=== PATIENT | female | born 1930 | race American Indian/Alaskan Native ===

== ENCOUNTER 2018-04-25 20:40 | Inpatient (IN) | payer MEDICAID ==
--- NOTE | 2018-04-25 20:56 | Emergency Department Report ---
ED Chest Pain HPI - General Chief Complaint: Chest Pain Stated Complaint: chest pain Time Seen by Provider: 04/25/18 20:40 Source: family, EMS Mode of arrival: Stretcher Limitations: No Limitations - History of Present Illness Initial Comments: Patient is an 87-year-old female that presents emergency room with complaints of chest pain 3 hours and nausea and vomiting. Patient brought in by EMS. Patient states the chest pain is in the center of her chest and nonradiating. Patient denies shortness of breath. Patient states the pain is better with rest and worse with exertion. Patient states the pain is a 10 out of 10. She has past medical history of vertigo, tachybradycardia syndrome, dementia and pacemaker placement. MD Complaint: chest pain -: Sudden Onset: during rest Pain Location: substernal, left chest Pain Radiation: none Severity: severe Severity scale (0 -10): 10 Quality: tightness, heaviness Consistency: constant Improves With: rest Worsens With: exertion re: nausea, vomting. denies: diaphoresis, dyspnea, sense of impending doom Other Symptoms: denies: cough, fever, syncope, rash, acid taste in mouth, leg swelling, palpitations, burping Treatments Prior to Arrival: nitroglycerin Aspirin use within the Past 7 Days: (0) No - Related Data On Oral Contraceptives: No Home Medications Medication Instructions Recorded Confirmed Last Taken Metoprolol SUCCINATE ER TAB 50 mg PO DAILY 12/14/14 04/25/18 04/25/18 Apixaban [Eliquis] 2.5 mg PO BID 04/25/18 04/25/18 Unknown Donepezil HCl 10 mg PO HS 04/25/18 04/25/18 Unknown Meclizine [Antivert] 25 mg PO BID PRN 04/25/18 04/25/18 Unknown Allergies Allergy/AdvReac Type Severity Reaction Status Date / Time No Known Allergies Allergy Verified 04/25/18 21:44 Heart Score - HEART Score History: Moderately suspicious EKG: Non-specific Age: > 65 Risk factors: No known risk factors Troponin: < normal limit HEART Score: 4 ED Review of Systems ROS: Stated complaint: CODE STEMI Other details as noted in HPI Constitutional: denies: chills, fever Eyes: denies: eye pain, eye discharge, vision change ENT: denies: ear pain, throat pain Respiratory: denies: cough, shortness of breath, wheezing Cardiovascular: chest pain. denies: palpitations Endocrine: no symptoms reported Gastrointestinal: nausea, vomiting. denies: abdominal pain, diarrhea Genitourinary: denies: urgency, dysuria, discharge Musculoskeletal: denies: back pain, joint swelling, arthralgia Skin: denies: rash, lesions Neurological: denies: headache, weakness, paresthesias Psychiatric: denies: anxiety, depression Hematological/Lymphatic: denies: easy bleeding, easy bruising ED Past Medical Hx - Past Medical History Previous Medical History?: Yes Hx Arthritis: Yes 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 Vertigo. Pacemaker - Surgical History Past Surgical History?: Yes Hx Pacemaker: Yes Additional Surgical History: Cataract surgery. pacemaker - Family History Family history: no significant - Social History Smoking Status: Never Smoker Substance Use Type: None - Medications Home Medications: Home Medications Medication Instructions Recorded Confirmed Last Taken Type Metoprolol SUCCINATE ER TAB 50 mg PO DAILY 12/14/14 04/25/18 04/25/18 History Apixaban [Eliquis] 2.5 mg PO BID 04/25/18 04/25/18 Unknown History Donepezil HCl 10 mg PO HS 04/25/18 04/25/18 Unknown History Meclizine [Antivert] 25 mg PO BID PRN 04/25/18 04/25/18 Unknown History ED Physical Exam - General Limitations: No Limitations, Other General appearance: alert, in no apparent distress - Head Head exam: Present: atraumatic, normocephalic - Eye Eye exam: Present: normal appearance, PERRL Pupils: Present: normal accommodation - ENT ENT exam: Present: mucous membranes moist - Neck Neck exam: Present: normal inspection - Respiratory Respiratory exam: Present: normal lung sounds bilaterally. Absent: respiratory distress - Cardiovascular Cardiovascular Exam: Present: regular rate, normal rhythm. Absent: systolic murmur, diastolic murmur, rubs, gallop - GI/Abdominal GI/Abdominal exam: Present: soft, normal bowel sounds - Extremities Exam Extremities exam: Present: normal inspection - Back Exam Back exam: Present: normal inspection - Neurological Exam Neurological exam: Present: alert, oriented X3 - Psychiatric Psychiatric exam: Present: normal affect, normal mood - Skin Skin exam: Present: warm, dry, intact, normal color. Absent: rash ED Course Vital Signs 04/25/18 04/25/18 04/25/18 20:48 20:53 21:00 Temperature Pulse Rate 81 73 62 Respiratory 20 15 Rate Blood Pressure 181/84 O2 Sat by Pulse 98 100 Oximetry 04/25/18 04/25/18 04/25/18 21:15 21:18 21:20 Temperature 97.9 F Pulse Rate 60 Respiratory 15 18 Rate Blood Pressure 181/86 O2 Sat by Pulse 100 100 Oximetry 04/25/18 04/25/18 04/25/18 21:30 21:45 21:51 Temperature Pulse Rate 60 60 60 Respiratory 18 24 Rate Blood Pressure 193/85 193/84 193/84 O2 Sat by Pulse 100 100 Oximetry 04/25/18 04/25/18 04/25/18 22:01 22:15 22:30 Temperature Pulse Rate 60 60 60 Respiratory 16 15 14 Rate Blood Pressure 173/77 165/77 170/83 O2 Sat by Pulse 100 100 100 Oximetry 04/25/18 04/25/18 04/25/18 22:45 23:00 23:15 Temperature Pulse Rate 60 60 69 Respiratory 16 17 16 Rate Blood Pressure 185/80 185/80 153/71 O2 Sat by Pulse 100 100 100 Oximetry 04/25/18 04/26/18 04/26/18 23:30 00:00 00:07 Temperature Pulse Rate 67 62 60 Respiratory 19 21 Rate Blood Pressure 140/63 140/63 98/42 O2 Sat by Pulse 100 Oximetry 04/26/18 04/26/18 04/26/18 00:15 00:30 00:45 Temperature Pulse Rate 60 65 66 Respiratory 21 22 22 Rate Blood Pressure 76/31 92/41 109/59 O2 Sat by Pulse 97 97 Oximetry 04/26/18 01:00 Temperature Pulse Rate 69 Respiratory 19 Rate Blood Pressure 116/58 O2 Sat by Pulse 97 Oximetry - Reevaluation(s) Reevaluation #1: Code STEMI called due to ST segment changes on EMS EKGs. EKG done here and transmitted to Dr. Keith via text. No ST segment elevation noted but patient is a paced rhythm. 04/25/18 20:40 Patient will have a head CT prior to admission due to the fact the patient has had so much nausea vomiting 04/26/18 00:03 Nausea and vomiting has resolved Patient had head CT and is negative. Patient was admitted to the hospitalist service for further evaluation and treatment. Patient family group plan of care. 04/26/18 02:21 - Consultations Consultation #1: Discussed case with Dr. Rosado, job molder. Dr. Rosado states that this is not a STEMI and to cancel code STEMI. 04/25/18 20:45 Consultation #2: Hospitalist consult for admission. Hospitalist to admit patient and assume care of patient. 04/25/18 22:41 CT done. Hospitalist made aware of results. Hospitalist consulted for admission. 04/26/18 02:20 DEONNA score - Deonna Score Age > 65: (1) Yes Aspirin use within the Past 7 Days: (0) No 3 or more CAD Risk Factors: (0) No 2 or more Angina events in past 24 hrs: (1) Yes Known CAD with more than 50% Stenosis: (0) No Elevated Cardiac Markers: (0) No ST Deviation Greater than 0.5mm: (0) No DEONNA Score: 2 ED Medical Decision Making - Lab Data Result diagrams: 04/25/18 20:45 04/25/18 20:45 - EKG Data EKG shows normal: ST-T waves Rate: normal - EKG Data Interpretation: LVH, other ( AV paced. Wide QRS) - Radiology Data Radiology results: report reviewed, image reviewed PROCEDURE: XR CHEST 1V AP TECHNIQUE: Single frontal view of the chest HISTORY: Chest Pain COMPARISONS: No priors FINDINGS: There is a dual-chamber pacemaker in place. Cardiac silhouette at the upper limits of normal. Linear atelectasis in the left lung base. No airspace consolidation or pleural effusions. Pulmonary vasculature are within normal limits. IMPRESSION: Dual chamber pacemaker in place. No radiographic evidence of acute disease. Linear atelectasis in the left lung base.. PROCEDURE: CT HEAD/BRAIN WO CON TECHNIQUE: Routine axial imaging was obtained of the brain without IV contrast. HISTORY: nause. vomiting. COMPARISONS: None FINDINGS: There is mild volume loss. There is diminished attenuation of the periventricular white matter compatible with chronic ischemic white matter disease changes. There is no evidence of acute stroke or hemorrhage. The sinuses reveal subtotal opacification of both maxillary sinuses secondary to mucosal thickening and secretions. There is patchy mucosal thickening in the right ethmoidal air cells. The mastoid air cells are well pneumatized. The calvarium otherwise does not show any acute changes. IMPRESSION: Age related volume loss with chronic ischemic white matter disease changes. No evidence of acute stroke or hemorrhage. Extensive bilateral maxillary sinusitis with patchy mucosal thickening in the right ethmoidal air cells.. - Medical Decision Making pt is an 87-year-old female that presents pressure with complaints of chest pain and nausea vomiting. Patient's nausea is improved with Zofran. Patient initial cardiac workup is negative. Patient was admitted to the hospitalist service for further evaluation treatment. Dr. Rosado consulted early and care. Patient's initial cardiac workup negative. Patient's nausea is resolved with Zofran. Pressure elevated. Patient given hydralazine. - Differential Diagnosis acs. nstemi, cp. pe. Critical Care Time: Yes Critical care attestation.: If time is entered above; I have spent that time in minutes in the direct care of this critically ill patient, excluding procedure time. Critical Care Time: 35 minutes ED Disposition Clinical Impression: Nausea and vomiting Qualifiers: Vomiting type: unspecified Vomiting Intractability: non-intractable Qualified Code(s): R11.2 - Nausea with vomiting, unspecified Chest pain Qualifiers: Chest pain type: unspecified Qualified Code(s): R07.9 - Chest pain, unspecified Hypertension Qualifiers: Hypertension type: essential hypertension Qualified Code(s): I10 - Essential (primary) hypertension Disposition: OP ADMIT IP TO THIS HOSP Is pt being admited?: Yes Does the pt Need Aspirin: No Condition: Critical Time of Disposition: 02:21
[2018-04-25] MEDS ORDERED: ASPIRIN PR ONE (21:05)
[2018-04-25] MEDS ORDERED: NITRO-BID 2% TP ONE (21:05)
[2018-04-25 21:31] LABS: Hematocrit 37.3 % (30.3-42.9); Hemoglobin 12.8 gm/dl (10.1-14.3); Mean Corpuscular HGB Conc 34 % (30-34); Mean Corpuscular Volume 86 fl (79-97); Platelet Count 239 K/mm3 (140-440); Red Blood Count 4.32 M/mm3 (3.65-5.03)
[2018-04-25] MEDS ORDERED: ZOFRAN IV ONE (21:40)
[2018-04-25 21:41] LABS: Alanine Aminotransferase 10 units/L (7-56); Albumin 3.9 g/dL (3.9-5); BUN/Creatinine Ratio 18; Blood Urea Nitrogen 14 mg/dL (7-17); Calcium 10.7 mg/dL (8.4-10.2); Hemolysis Index 4
[2018-04-25] MEDS ORDERED: ZOFRAN ONE (21:43)
[2018-04-25 22:12] LABS: Total Cells Counted 100
[2018-04-25 22:13] LABS: Band Neutrophils # (Manual) 0.1 K/mm3
[2018-04-25 22:14] LABS: Ovalocytes Few
--- NOTE | 2018-04-25 22:19 | XRay Report ---
PROCEDURE: XR CHEST 1V AP TECHNIQUE: Single frontal view of the chest HISTORY: Chest Pain COMPARISONS: No priors FINDINGS: There is a dual-chamber pacemaker in place. Cardiac silhouette at the upper limits of normal. Linear atelectasis in the left lung base. No airspace consolidation or pleural effusions. Pulmonary vasculature are within normal limits. IMPRESSION: Dual chamber pacemaker in place. No radiographic evidence of acute disease. Linear atelectasis in the left lung base.. This document is electronically signed by Kit Hutton MD., April 25 2018 10:17:12 PM ET
[2018-04-25] MEDS ORDERED: APRESOLINE ONE (22:52)
[2018-04-25] MEDS ORDERED: APRESOLINE IV ONE (22:55)
[2018-04-26] MEDS ORDERED: REGLAN ONE (00:04)
[2018-04-26] MEDS ORDERED: REGLAN IV ONE (00:07)
--- NOTE | 2018-04-26 01:43 | Cat Scan Report ---
PROCEDURE: CT HEAD/BRAIN WO CON TECHNIQUE: Routine axial imaging was obtained of the brain without IV contrast. HISTORY: nause. vomiting. COMPARISONS: None FINDINGS: There is mild volume loss. There is diminished attenuation of the periventricular white matter compat ible with chronic ischemic white matter disease changes. There is no evidence of acute stroke or hemo rrhage. The sinuses reveal subtotal opacification of both maxillary sinuses secondary to mucosal thic kening and secretions. There is patchy mucosal thickening in the right ethmoidal air cells. The masto id air cells are well pneumatized. The calvarium otherwise does not show any acute changes. IMPRESSION: Age related volume loss with chronic ischemic white matter disease changes. No evidence of acute stro ke or hemorrhage. Extensive bilateral maxillary sinusitis with patchy mucosal thickening in the right ethmoidal air donavon ls.. This document is electronically signed by José Gillette MD., April 26 2018 01:40:37 AM ET
[2018-04-26] MEDS ORDERED: SODIUM CHLORIDE FLUSH SYRINGE 10 ML IV PRN (02:12)
[2018-04-26] MEDS ORDERED: ZOFRAN IV PRN (02:12)
[2018-04-26] MEDS ORDERED: TYLENOL PO PRN (02:12)
[2018-04-26 03:04] LABS: Basophils % (Auto) 0.4 % (0.0-1.8); Hematocrit 38.7 % (30.3-42.9); Hemoglobin 12.8 gm/dl (10.1-14.3); Lymphocytes # (Auto) 1.9 K/mm3 (1.2-5.4); Lymphocytes % (Auto) 21.9 % (13.4-35.0); Mean Corpuscular HGB Conc 33 % (30-34); Mean Corpuscular Volume 88 fl (79-97); Monocytes # (Auto) 0.2 K/mm3 (0.0-0.8); Platelet Count 229 K/mm3 (140-440); Red Blood Count 4.42 M/mm3 (3.65-5.03); Red Cell Distribution Width 14.2 % (13.2-15.2)
[2018-04-26 03:25] LABS: BUN/Creatinine Ratio 18; Blood Urea Nitrogen 14 mg/dL (7-17); Calcium 10.8 mg/dL (8.4-10.2); Hemolysis Index 11
--- NOTE | 2018-04-26 06:37 | History and Physical Report ---
History of Present Illness Date of examination: 04/26/18 Date of admission: 04/26/18 02:11 History of present illness: 87-year-old woman with a history of A. fib, dementia comes emergency room for evaluation of syncope. Daughter said that she had an episode of syncope, this was not witnessed, she also complained of chest pain in the epigastric area, further details about her symptoms are unobtainable secondary to dementia PAST MEDICAL HISTORY:of A. fib, dementia PAST SURGICAL HISTORY: Cataract extraction, pacemaker SOCIAL HISTORY: Denies alcohol, drugs, tobacco FAMILY HISTORY: Hypertension Medications and Allergies Allergies Allergy/AdvReac Type Severity Reaction Status Date / Time No Known Allergies Allergy Verified 04/25/18 21:44 Home Medications Medication Instructions Recorded Confirmed Last Taken Type Metoprolol SUCCINATE ER TAB 50 mg PO DAILY 12/14/14 04/25/18 04/25/18 History Apixaban [Eliquis] 2.5 mg PO BID 04/25/18 04/25/18 Unknown History Donepezil HCl 10 mg PO HS 04/25/18 04/25/18 Unknown History Meclizine [Antivert] 25 mg PO BID PRN 04/25/18 04/25/18 Unknown History Active Meds: Active Medications Acetaminophen (Tylenol) 650 mg PO Q4H PRN PRN Reason: Pain MILD(1-3)/Fever >100.5/KELLY Apixaban (Eliquis) 2.5 mg PO BID [facility]; Protocol Donepezil HCl (Aricept) 10 mg PO HS [facility] Meclizine HCl (Antivert) 25 mg PO BID PRN PRN Reason: Vertigo Miscellaneous Medication (Metoprolol Succinate Er Tab) 50 mg PO DAILY [facility] Ondansetron HCl (Zofran) 4 mg IV Q8H PRN PRN Reason: Nausea And Vomiting Sodium Chloride (Sodium Chloride Flush Syringe 10 Ml) 10 ml IV BID [facility] Sodium Chloride (Sodium Chloride Flush Syringe 10 Ml) 10 ml IV PRN PRN PRN Reason: LINE FLUSH Exam - Physical Exam Narrative exam: General Apperance: The patient lying in bed, breathing comfortable HEENT: Normocephalic, atraumatic. Pupils equally round and reactive to light, EOMI, no sclericterus or JVD or thyromegaly or nodule. , no carotid bruit, mucous membranes moist, no exudate or erythema Heart: S1-S2, regular is rhythm Lungs: Clear to auscultation bilaterally, breathing comfortable Abdomen: Positive bowel sounds, soft, nontender, nondistended, no organomegaly Extremities: No edema cyanosis clubbing Skin: no rash, nodule, warm and dry Neuro: cranial nerves 2-12 intact, speech is fluent, motor/sensory intact - Constitutional Vitals: Temp Pulse Resp BP Pulse Ox 98.6 F 65 17 130/61 100 04/26/18 04:53 04/26/18 04:53 04/26/18 04:53 04/26/18 04:53 04/26/18 04:53 Results - Labs CBC & Chem 7: 04/26/18 02:27 04/26/18 02:27 Labs: Abnormal lab results 04/25/18 04/25/18 04/26/18 Range/Units 20:45 20:45 02:27 Seg Neutrophils % (40.0-70.0) % Seg Neuts % (Manual) 13.0 L (40.0-70.0) % Lymphocytes % (Manual) 67.0 H (13.4-35.0) % Monocytes % (Manual) 8.0 H (0.0-7.3) % Basophils % (Manual) 3.0 H (0.0-1.8) % Seg Neutrophils # Man 1.3 L (1.8-7.7) K/mm3 Lymphocytes # (Manual) 6.8 H (1.2-5.4) K/mm3 Basophils # (Manual) 0.3 H (0.0-0.1) K/mm3 Glucose 123 H (65-100) mg/dL Calcium 10.7 H (8.4-10.2) mg/dL CK-MB (CK-2) Rel Index 4.1 H (0-4) 04/26/18 04/26/18 Range/Units 02:27 02:27 Seg Neutrophils % 75.7 H (40.0-70.0) % Seg Neuts % (Manual) (40.0-70.0) % Lymphocytes % (Manual) (13.4-35.0) % Monocytes % (Manual) (0.0-7.3) % Basophils % (Manual) (0.0-1.8) % Seg Neutrophils # Man (1.8-7.7) K/mm3 Lymphocytes # (Manual) (1.2-5.4) K/mm3 Basophils # (Manual) (0.0-0.1) K/mm3 Glucose 168 H (65-100) mg/dL Calcium 10.8 H (8.4-10.2) mg/dL CK-MB (CK-2) Rel Index (0-4) - Imaging and Cardiology EKG: image reviewed Chest x-ray: report reviewed CT Scan - head: report reviewed Assessment and Plan Assessment Syncope Chest pain Dementia A. fib Plan Check cardiac enzymes, echo, carotid Doppler Consult cardiology, continue appropriate outpatient medications DVT prophylaxis/eliquis
--- NOTE | 2018-04-26 09:59 | Consultation ---
Addendum entered and electronically signed by JYOTI LOPEZ MD 04/26/18 10:07: Patient is a very poor historian Patient is not aware of why she is in the hospital Patient denies chest pain or shortness of breath DEBBIE are negative ECG showing afib with V-pacing Tele showing atrial pacing CXR showing NAP Exam is unrevealing with no signs of CHF Conservative cardiac management Original Note: History of Present Illness Consult date: 04/26/18 Consult reason: chest pain History of present illness: Patient is an 87 year old woman who was sent to the emergency department with chest pain. Patient is a poor historian, history if unobtainable. Currently, she denies chest pain. She has no shortness of breath or palpitations. Chest x-ray shows a dual chamber pacemaker implant, no acute cardiopulmonary process. Cardiac enzymes were essential normal and her ECG is a ventricular paced rhythm. 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 Patient also has paroxysmal atrial fibrillation. She is on low dose eliquis for oral anticoagulation. In 2013, an echocardiogram documents a well preserved systolic function, ejection fraction 55-60%. Medications and Allergies Allergies Allergy/AdvReac Type Severity Reaction Status Date / Time No Known Allergies Allergy Verified 04/25/18 21:44 Home Medications Medication Instructions Recorded Confirmed Last Taken Type Metoprolol SUCCINATE ER TAB 50 mg PO DAILY 12/14/14 04/25/18 04/25/18 History Apixaban [Eliquis] 2.5 mg PO BID 04/25/18 04/25/18 Unknown History Donepezil HCl 10 mg PO HS 04/25/18 04/25/18 Unknown History Meclizine [Antivert] 25 mg PO BID PRN 04/25/18 04/25/18 Unknown History Active Meds: Active Medications Acetaminophen (Tylenol) 650 mg PO Q4H PRN PRN Reason: Pain MILD(1-3)/Fever >100.5/KELLY Apixaban (Eliquis) 2.5 mg PO BID [facility]; Protocol Donepezil HCl (Aricept) 10 mg PO HS [facility] Meclizine HCl (Antivert) 25 mg PO BID PRN PRN Reason: Vertigo Metoprolol Succinate (Toprol Xl) 50 mg PO QDAY [facility] Ondansetron HCl (Zofran) 4 mg IV Q8H PRN PRN Reason: Nausea And Vomiting Sodium Chloride (Sodium Chloride Flush Syringe 10 Ml) 10 ml IV BID [facility] Sodium Chloride (Sodium Chloride Flush Syringe 10 Ml) 10 ml IV PRN PRN PRN Reason: LINE FLUSH Physical Examination Vital Signs Pulse Resp Pulse Ox 81 20 98 04/25/18 20:48 04/25/18 20:48 04/25/18 20:48 General appearance: no acute distress HEENT: Positive: PERRL Neck: Positive: trachea midline Cardiac: Positive: Other (paced) Lungs: Positive: Decreased Breath Sounds Neuro: Positive: Grossly Intact Extremities: Absent: edema Results 04/26/18 02:27 04/26/18 02:27 Cardiac Enzymes 04/25/18 04/26/18 Range/Units 20:45 02:27 AST 16 (5-40) units/L CK-MB (CK-2) 2.0 (0.0-4.0) ng/mL CBC 04/25/18 04/26/18 Range/Units 20:45 02:27 WBC 10.2 8.9 (4.5-11.0) K/mm3 RBC 4.32 4.42 (3.65-5.03) M/mm3 Hgb 12.8 12.8 (10.1-14.3) gm/dl Hct 37.3 38.7 (30.3-42.9) % Plt Count 239 229 (140-440) K/mm3 Lymph # Cardiovascular Lab Director 1.9 [place] # 0.2 (0.0-0.8) K/mm3 Eos # 0.0 (0.0-0.4) K/mm3 Baso # 0.0 (0.0-0.1) K/mm3 Comprehensive Metabolic Panel 04/25/18 04/26/18 Range/Units 20:45 02:27 Sodium 140 141 (137-145) mmol/L Potassium 3.6 4.3 (3.6-5.0) mmol/L Chloride 104.9 102.4 (98-107) mmol/L Carbon Dioxide 25 26 (22-30) mmol/L BUN 14 14 (7-17) mg/dL Creatinine 0.8 0.8 (0.7-1.2) mg/dL Glucose 123 H 168 H (65-100) mg/dL Calcium 10.7 H 10.8 H (8.4-10.2) mg/dL AST 16 (5-40) units/L ALT 10 (7-56) units/L Alkaline Phosphatase 113 (35-129) units/L Total Protein 7.4 (6.3-8.2) g/dL Albumin 3.9 (3.9-5) g/dL Assessment and Plan Chest pain, atypical Hx of paroxysmal Afib on low dose eliquis for anticoagulation Hx of high degree AV block presence of DC PPM 2013 echocardiogram documents a well preserved left ventricular systolic function, EF 55-60%. Conservative cardiac management.
[2018-04-26] MEDS ORDERED: LOVENOX SUB-Q SCH ×2 (10:00)
[2018-04-26] MEDS ORDERED: NON-FORMULARY (Metoprolol Succinate Er Tab 50 MG) PO SCH (10:00)
[2018-04-26] MEDS ORDERED: ANTIVERT PO PRN (10:00)
[2018-04-26] MEDS: ELIQUIS PO SCH ×2 (11:41→22:35)
[2018-04-26] MEDS: TOPROL XL PO SCH (11:42)
[2018-04-26] MEDS: SODIUM CHLORIDE FLUSH SYRINGE 10 ML IV SCH ×2 (11:42→22:35)
--- NOTE | 2018-04-26 11:54 | Vascular Lab Report ---
PROCEDURE: VL CAROTID DUPLEX BILAT TECHNIQUE: Longitudinal and transverse grayscale, color, and Doppler sonographic images were perform ed HISTORY: syncope COMPARISONS: None FINDINGS: RIGHT Vessel PSV EDV Proximal CCA 75 8 Distal CCA 79 12 Proximal ICA 71 14 Mid ICA 60 15 Distal ICA 63 16 ECA 86 6 Vertebral 62 7 LEFT Vessel PSV EDV Proximal CCA 99 12 Distal CCA 72 8 Proximal ICA 70 20 Mid ICA 68 16 Distal ICA 39 10 ECA 75 5 Vertebral 75 9 Grayscale images demonstrates calcific plaquing bilaterally with tortuosity of the vessels. Antegrade flow in the bilateral vertebral arteries. IMPRESSION: By both velocities and ratios, no hemodynamically significant stenosis (1-49%) of either internal car otid artery. Antegrade flow in the bilateral vertebral arteries. This document is electronically signed by Melissa Singh MD., April 26 2018 11:52:30 AM ET
[2018-04-26] MEDS ORDERED: ZOFRAN ONE (11:59)
[2018-04-26] MEDS ORDERED: ASPIRIN PR ONE (11:59)
--- NOTE | 2018-04-26 14:43 | Event Note ---
Date: 04/26/18 Patient admitted earlier this morning for syncope and sub sternal chest pain. continue management per H/p. Cardiology evaluation noted.
[2018-04-26] MEDS: ARICEPT PO SCH (22:35)
[2018-04-27] MEDS: TOPROL XL PO SCH (10:12)
[2018-04-27] MEDS: ELIQUIS PO SCH ×2 (10:13→21:51)
[2018-04-27] MEDS: SODIUM CHLORIDE FLUSH SYRINGE 10 ML IV SCH ×2 (10:14→21:52)
--- NOTE | 2018-04-27 12:53 | Progress Note ---
Assessment and Plan Chest pain, atypical: Now resolved. Hx of paroxysmal Afib on low dose eliquis at home for anticoagulation Hx of high degree AV block presence of DC PPM 2013 echocardiogram documents a well preserved left ventricular systolic function, EF 55-60%. Recommend: Conservative cardiac management. At time of discharge she will need f/u with outpatient gun barrel finisher (previously seeing Dr. Aceves) Subjective Date of service: 04/27/18 Interval history: No cardiac complaints Objective Vital Signs Temp Pulse Resp BP Pulse Ox 04/27/18 10:12 61 135/70 04/27/18 10:00 100 04/27/18 08:02 98.1 F 80 18 135/70 100 04/27/18 04:45 97.9 F 63 16 122/56 100 04/26/18 23:09 97.9 F 68 16 117/47 98 04/26/18 21:12 99 04/26/18 19:50 68 04/26/18 19:33 97.9 F 68 18 109/42 100 04/26/18 18:00 97.8 F 65 18 122/54 99 - Physical Examination HEENT: Positive: PERRL Neck: Positive: trachea midline Cardiac: Positive: Reg Rate and Rhythm Lungs: Positive: clear to auscultation Extremities: Absent: edema - Labs and Meds Cardiac Enzymes 04/26/18 Range/Units 12:33 CK-MB (CK-2) 2.0 (0.0-4.0) ng/mL - Imaging and Cardiology EKG: image reviewed
--- NOTE | 2018-04-27 16:14 | Discharge Summary ---
Providers - Providers Date of Admission: 04/26/18 02:11 Date of discharge: 04/27/18 Attending physician: JORGE ROBLERO 04/26/18 02:12 Consult to Physician [CONS] Routine Comment: Consulting Provider: SHANTELLE POE Physician Instructions: Reason For Exam: cp Primary care physician: [facility] Hospitalization Condition: Fair Hospital course: Patient 87 years old presents with chest pain has since resolved. Was felt to be in atrial fibrillation rate control. Echocardiogram revealed ejection fraction of 55-60%. Patient chest pain-free, with dementia. Cardiac isoenzymes negative EKG unremarkable. Disposition: DC-30 STILL A PATIENT - Discharge Diagnoses (1) Chest pain Status: Acute Qualifiers: Chest pain type: unspecified Qualified Code(s): R07.9 - Chest pain, unspecified (2) Hypertension Status: Acute Qualifiers: Hypertension type: essential hypertension Qualified Code(s): I10 - Essential (primary) hypertension Core Measure Documentation - Palliative Care Palliative Care/ Comfort Measures: Not Applicable - Core Measures Any of the following diagnoses?: none Exam - Constitutional Vitals: Temp Pulse Resp BP Pulse Ox 98.3 F 60 16 105/46 98 04/27/18 14:14 04/27/18 14:14 04/27/18 14:14 04/27/18 14:14 04/27/18 14:14 General appearance: Present: no acute distress, well-nourished - EENT Eyes: Present: PERRL ENT: hearing intact, clear oral mucosa - Neck Neck: Present: supple, normal ROM - Respiratory Respiratory effort: normal Respiratory: bilateral: CTA - Cardiovascular Rhythm: irregularly irregular Heart Sounds: Present: S1 & S2. Absent: rub, click - Extremities Extremities: pulses symmetrical, No edema Peripheral Pulses: within normal limits - Abdominal General gastrointestinal: Present: soft, non-tender, non-distended, normal bowel sounds Female genitourinary: Present: normal - Integumentary Integumentary: Present: clear, warm, dry - Musculoskeletal Musculoskeletal: strength equal bilaterally, generalized weakness - Psychiatric Psychiatric: appropriate mood/affect, intact judgment & insight - Neurologic Neurologic: CNII-XII intact, moves all extremities Plan Activity: advance as tolerated, fall precautions Weight Bearing Status: Non-Weight Bearing Diet: low salt Prescriptions: Apixaban [Eliquis] 2.5 mg PO BID #60 tablet Donepezil HCl 10 mg PO HS #30 tablet Meclizine [Antivert] 25 mg PO BID PRN #60 tablet PRN Reason: Vertigo Metoprolol Xl [Metoprolol SUCCINATE ER TAB] 50 mg PO QDAY #30 tablet
[2018-04-27] MEDS: ARICEPT PO SCH (21:51)
[2018-04-28 08:37] VITALS: BP 141/61
[2018-04-28] MEDS: SODIUM CHLORIDE FLUSH SYRINGE 10 ML IV SCH (09:52)
[2018-04-28] MEDS: ELIQUIS PO SCH (09:52)
[2018-04-28] MEDS: TOPROL XL PO SCH (09:52)
--- NOTE | 2018-04-28 11:33 | Discharge Summary ---
Providers - Providers Date of Admission: 04/26/18 02:11 Date of discharge: 04/28/18 Attending physician: JORGE ROBLERO 04/26/18 02:12 Consult to Physician [CONS] Routine Comment: Consulting Provider: SHANTELLE POE Physician Instructions: Reason For Exam: cp Primary care physician: [facility] Hospitalization Condition: Fair Disposition: DC- TO HOME OR SELFCARE - Discharge Diagnoses (1) Chest pain Status: Acute Qualifiers: Chest pain type: unspecified Qualified Code(s): R07.9 - Chest pain, unspecified (2) Hypertension Status: Acute Qualifiers: Hypertension type: essential hypertension Qualified Code(s): I10 - Essential (primary) hypertension Core Measure Documentation - Palliative Care Palliative Care/ Comfort Measures: Not Applicable - Core Measures Any of the following diagnoses?: none Exam - Constitutional Vitals: Temp Pulse Resp BP Pulse Ox 97.5 F L 61 16 141/61 97 04/28/18 08:28 04/28/18 09:52 04/28/18 08:28 04/28/18 09:52 04/28/18 08:28 General appearance: Present: no acute distress, well-nourished - EENT Eyes: Present: PERRL ENT: hearing intact, clear oral mucosa - Neck Neck: Present: supple, normal ROM - Respiratory Respiratory effort: normal Respiratory: bilateral: CTA - Cardiovascular Heart Sounds: Present: S1 & S2. Absent: rub, click - Extremities Extremities: pulses symmetrical, No edema Peripheral Pulses: within normal limits - Abdominal General gastrointestinal: Present: soft, non-tender, non-distended, normal bowel sounds Female genitourinary: Present: normal - Integumentary Integumentary: Present: clear, warm, dry - Musculoskeletal Musculoskeletal: gait normal, strength equal bilaterally - Psychiatric Psychiatric: appropriate mood/affect, intact judgment & insight - Neurologic Neurologic: CNII-XII intact, moves all extremities Plan Follow up with: JESSICA ARITA MD [Primary Care Provider] - 7 Days Prescriptions: Apixaban [Eliquis] 2.5 mg PO BID #60 tablet Donepezil HCl 10 mg PO HS #30 tablet Meclizine [Antivert] 25 mg PO BID PRN #60 tablet PRN Reason: Vertigo Metoprolol Xl [Metoprolol SUCCINATE ER TAB] 50 mg PO QDAY #30 tablet
== END 2018-04-28 14:38 | disposition home or self-care (01) | DRG 310 ==
LOC: ED 20:40 → 4A 04-26 02:11
PROVIDERS: ADMIT Internal Medicine; ATTEND Internal Medicine
DX: I48.0 Paroxysmal atrial fibrillation (principal); R07.89 Other chest pain; R55 Syncope and collapse; F03.90 Unspecified dementia, unspecified severity, without behavioral disturbance, psychotic disturbance, mood disturbance, and anxiety; I49.5 Sick sinus syndrome; M19.90 Unspecified osteoarthritis, unspecified site; I10 Essential (primary) hypertension; Z82.49 Family history of ischemic heart disease and other diseases of the circulatory system; Z95.0 Presence of cardiac pacemaker; Z98.49 Cataract extraction status, unspecified eye; Z79.01 Long term (current) use of anticoagulants
CPT/HCPCS: 36415; 70450; 71045; 80048; 80053; 82550; 82553; 82962; 84484; 85007; 85025; 85379; 93005; 93010; 93306; 93880; 94760; 96374; 96375; 99291; G0378; J0360; J2405; J2765

== ENCOUNTER 2019-12-10 16:52 | Inpatient (IN) | payer MEDICAID ==
[2019-12-10] MEDS ORDERED: SODIUM CHLORIDE 0.9% 1000 ML 1,000 ML IV ONE (17:18)
--- NOTE | 2019-12-10 17:21 | Emergency Department Report ---
ED Altered Mental Status HPI - General Chief Complaint: Altered Mental Status Stated Complaint: ALTERED MENTAL STATUS/HYPOTENSION PUI?: No Time Seen by Provider: 12/10/19 17:09 Source: EMS Mode of arrival: Stretcher Limitations: Altered Mental Status, Physical Limitation - History of Present Illness Initial Comments: Patient is an 89-year-old female that presents emergency room with complaints of syncopal episode, altered mental status and hypotension. Patient brought in by EMS. Patient was found to be bradycardic and hypotensive and the patient was given 400 cc of fluids and her vital signs improved. Patient is still altered. Patient has a history of dementia but we are not sure of the patient's baseline. Patient at this time is oriented x1. Patient is only oriented to person. MD Complaint: altered mental status, confusion, weakness -: Sudden Severity: severe - Related Data Previous Rx's Medication Instructions Recorded Last Taken Type Donepezil HCl 10 mg PO HS #30 tablet 04/27/18 Unknown Rx Meclizine [Antivert] 25 mg PO BID PRN #60 tablet 04/27/18 Unknown Rx Aspirin [Aspirin BABY CHEW TAB] 81 mg PO QDAY #30 tab.chew 06/24/19 Unknown Rx Allergies Allergy/AdvReac Type Severity Reaction Status Date / Time ibuprofen Allergy Intermediate Itching Verified 06/22/19 18:17 ED Review of Systems ROS: Stated complaint: ALTERED MENTAL STATUS/HYPOTENSION Other details as noted in HPI Comment: Unobtainable due to pts medical conditions ED Past Medical Hx - Past Medical History Previous Medical History?: Yes Hx Congestive Heart Failure: No Hx Diabetes: No Hx Arthritis: Yes Hx Asthma: No Hx COPD: No 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 Vertigo. Pacemaker. 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 pacemaker - Family History Family history: no significant - Social History Smoking Status: Never Smoker Substance Use Type: None - Medications Home Medications: Home Medications Medication Instructions Recorded Confirmed Last Taken Type Donepezil HCl 10 mg PO HS #30 tablet 04/27/18 06/22/19 Unknown Rx Meclizine [Antivert] 25 mg PO BID PRN #60 tablet 04/27/18 06/22/19 Unknown Rx Aspirin [Aspirin BABY CHEW TAB] 81 mg PO QDAY #30 tab.chew 06/24/19 Unknown Rx ED Physical Exam - General Limitations: Altered Mental Status, Physical Limitation General appearance: in no apparent distress, lethargic - Head Head exam: Present: atraumatic, normocephalic - Eye Eye exam: Present: normal appearance, PERRL Pupils: Present: normal accommodation - ENT ENT exam: Present: mucous membranes dry - Neck Neck exam: Present: normal inspection - Respiratory Respiratory exam: Present: normal lung sounds bilaterally. Absent: respiratory distress, wheezes, rales - Cardiovascular Cardiovascular Exam: Present: regular rate, normal rhythm. Absent: systolic murmur, diastolic murmur, rubs, gallop - GI/Abdominal GI/Abdominal exam: Present: soft, normal bowel sounds - Extremities Exam Extremities exam: Present: normal inspection - Back Exam Back exam: Present: normal inspection - Neurological Exam Neurological exam: Present: altered - Psychiatric Psychiatric exam: Present: normal affect, normal mood - Skin Skin exam: Present: warm, dry, intact, normal color. Absent: rash - Assessment Assessment Interval: Baseline - Level of Consciousness 1a. Level of Consciousness: arousable/minor stimuli - LOC Questions 1b. LOC Questions: answers 1 question correctly - LOC Command 1c. LOC Commands: performs tasks correctly - Best Gaze 2. Best Gaze: normal - Visual 3. Visual: no visual loss - Facial Palsy 4. Facial Palsy: normal symmetrical movement - Motor Arm 5a. Motor Arm Left: no drift 5b. Motor Arm Right: no drift - Motor Leg 6a. Motor Leg Left: some gravity effort 6b. Motor Leg Right: some gravity effort - Limb Ataxia 7. Limb Ataxia: absent - Sensory 8. Sensory: normal - Best Language 9. Best Language: no aphasia - Dysarthria 10. Dysarthria: normal - Extinction and Inattention 11. Extinction/Inattention: no abnormality - Scoring Total Score: 6 Stroke Severity: Moderate Stroke ED Course Vital Signs 12/10/19 12/10/19 12/10/19 17:40 19:22 20:06 Temperature 97.6 F Pulse Rate 61 60 70 Respiratory 19 16 Rate Blood Pressure 128/51 130/67 [Left] O2 Sat by Pulse 97 98 Oximetry - Reevaluation(s) Reevaluation #1: Initial evaluation done. A code stroke will be initiated due to the patient's presentation. 12/10/19 17:19 Reevaluation #2: Patient is more awake. Patient answering questions better. 12/10/19 19:08 Reevaluation #3: I discussed all results with patient. I discussed plan of care with patient. Patient agrees with plan of care and admission. Patient to be admitted to the hospitalist service. 12/10/19 19:28 - Consultations Consultation #1: I discussed the case with neurology. Neurology does not recommend TPA. Neur ology recommends admission for altered mental status and syncope work-up. Neurology recommends MRI in the morning. 12/10/19 18:08 Consultation #2: Hospitalist consulted for admission. Hospitalist to admit patient. 12/10/19 19:28 - Lab Data Result diagrams: 12/10/19 17:42 12/10/19 17:42 Lab Results 12/10/19 12/10/19 12/10/19 Range/Units 17:42 17:42 17:42 WBC 6.8 (4.5-11.0) K/mm3 RBC 4.24 (3.65-5.03) M/mm3 Hgb 12.4 (10.1-14.3) gm/dl Hct 37.0 (30.3-42.9) % MCV 87 (79-97) fl MCH 29 (28-32) pg MCHC 33 (30-34) % RDW 14.3 (13.2-15.2) % Plt Count 212 (140-440) K/mm3 Lymph % (Auto) 30.0 (13.4-35.0) % Mckenzie % (Auto) 5.8 (0.0-7.3) % Eos % (Auto) 1.7 (0.0-4.3) % Baso % (Auto) 1.0 (0.0-1.8) % Lymph # (Auto) 2.0 (1.2-5.4) K/mm3 Mckenzie # (Auto) 0.4 (0.0-0.8) K/mm3 Eos # (Auto) 0.1 (0.0-0.4) K/mm3 Baso # (Auto) 0.1 (0.0-0.1) K/mm3 Seg Neutrophils % 61.5 (40.0-70.0) % Seg Neutrophils # 4.2 (1.8-7.7) K/mm3 PT 14.2 (12.2-14.9) Sec. INR 1.09 (0.87-1.13) APTT 24.6 (24.2-36.6) Sec. Thrombin Time 16.3 (15.1-19.6) Sec. D-Dimer (0-234) ng/mlDDU Sodium 140 (137-145) mmol/L Potassium 4.7 (3.6-5.0) mmol/L Chloride 106.1 (98-107) mmol/L Carbon Dioxide 21 L (22-30) mmol/L Anion Gap 18 mmol/L BUN 11 (7-17) mg/dL Creatinine 0.7 (0.6-1.2) mg/dL Estimated GFR > 60 ml/min BUN/Creatinine Ratio 16 % Glucose 154 H (65-100) mg/dL POC Glucose (70-105) Calcium 10.5 H (8.4-10.2) mg/dL Total Bilirubin 0.80 (0.1-1.2) mg/dL AST 15 (5-40) units/L ALT 8 (7-56) units/L Alkaline Phosphatase 114 (35-129) units/L Total Creatine Kinase 26 L (30-135) units/L CK-MB (CK-2) < 1.0 (0.0-4.0) ng/mL CK-MB (CK-2) Rel Index 3.8 (0-4) Troponin T < 0.010 (0.00-0.029) ng/mL Total Protein 7.0 (6.3-8.2) g/dL Albumin 3.5 L (3.9-5) g/dL Albumin/Globulin Ratio 1.0 % 12/10/19 12/10/19 Range/Units 18:34 18:57 WBC (4.5-11.0) K/mm3 RBC (3.65-5.03) M/mm3 Hgb (10.1-14.3) gm/dl Hct (30.3-42.9) % MCV (79-97) fl MCH (28-32) pg MCHC (30-34) % RDW (13.2-15.2) % Plt Count (140-440) K/mm3 Lymph % (Auto) (13.4-35.0) % Mckenzie % (Auto) (0.0-7.3) % Eos % (Auto) (0.0-4.3) % Baso % (Auto) (0.0-1.8) % Lymph # (Auto) (1.2-5.4) K/mm3 Mckenzie # (Auto) (0.0-0.8) K/mm3 Eos # (Auto) (0.0-0.4) K/mm3 Baso # (Auto) (0.0-0.1) K/mm3 Seg Neutrophils % (40.0-70.0) % Seg Neutrophils # (1.8-7.7) K/mm3 PT (12.2-14.9) Sec. INR (0.87-1.13) APTT (24.2-36.6) Sec. Thrombin Time (15.1-19.6) Sec. D-Dimer 439.2 H (0-234) ng/mlDDU Sodium (137-145) mmol/L Potassium (3.6-5.0) mmol/L Chloride (98-107) mmol/L Carbon Dioxide (22-30) mmol/L Anion Gap mmol/L BUN (7-17) mg/dL Creatinine (0.6-1.2) mg/dL Estimated GFR ml/min BUN/Creatinine Ratio % Glucose (65-100) mg/dL POC Glucose 112 H (70-105) Calcium (8.4-10.2) mg/dL Total Bilirubin (0.1-1.2) mg/dL AST (5-40) units/L ALT (7-56) units/L Alkaline Phosphatase (35-129) units/L Total Creatine Kinase (30-135) units/L CK-MB (CK-2) (0.0-4.0) ng/mL CK-MB (CK-2) Rel Index (0-4) Troponin T (0.00-0.029) ng/mL Total Protein (6.3-8.2) g/dL Albumin (3.9-5) g/dL Albumin/Globulin Ratio % - EKG Data -: EKG Interpreted by Md EKG shows normal: sinus rhythm, axis, intervals, QRS complexes, ST-T waves Rate: normal - Radiology Data Radiology results: report reviewed CHEST 1 VIEW 12/10/2019 5:32 PM INDICATION / CLINICAL INFORMATION: Altered mental status. COMPARISON: 06/22/2019 FINDINGS: SUPPORT DEVICES: Cardiac pacemaker leads appear in unchanged appropriate position. HEART / MEDIASTINUM: No significant abnormality. LUNGS / PLEURA: No significant pulmonary or pleural abnormality. No pneumothorax. ADDITIONAL FINDINGS: No significant additional findings. IMPRESSION: 1. No acute findings. CT HEAD WITHOUT CONTRAST INDICATION / CLINICAL INFORMATION: Stroke symptoms. Altered mental status. Hypotension. TECHNIQUE: All CT scans at this location are performed using CT dose reduction for ALARA by means of automated exposure control. COMPARISON: CT 06/22/2019 and 04/25/2018 FINDINGS: HEMORRHAGE: No evidence of intracranial hemorrhage or extra-axial fluid collection. EXTRA-AXIAL SPACES: Cortical sulci and sylvian fissures are enlarged reflecting a degree of parenchymal volume loss which is within normal limits for the patient's age of 89 years. Basilar ci sterns have an unremarkable appearance. VENTRICULAR SYSTEM: The third and lateral ventricles are enlarged reflecting presence of age related parenchymal volume loss. CEREBRAL PARENCHYMA: Periventricular and deep white matter lucency is observed. This is probably secondary to microvascular ischemic change. There is no indication of recent infarction. No areas of encephalomalacia are identified. MIDLINE SHIFT OR HERNIATION: There is no mass effect. CEREBELLUM / BRAINSTEM: Brainstem has an unremarkable appearance. Age related cerebellar atrophy is noted. MIDLINE STRUCTURES:Pituitary gland has an unremarkable appearance. No abnormalities are seen in the pineal region. INTRACRANIAL VESSELS:Calcified atherosclerotic plaque is present along the course of the cavernous segments of both internal carotid arteries. ORBITS: Status post bilateral cataract surgery. No additional abnormality. SOFT TISSUES of HEAD: No significant abnormality. CALVARIUM: Evaluation of bone windows reveals no abnormalities. PARANASAL SINUSES / MASTOID AIR CELLS: Persistent bilateral maxillary sinus inflammatory changes are noted with complete opacification of the right maxillary sinus and subtotal opacification of the left maxillary sinus. In addition there is mucosal disease within anterior ethmoid air cells on the right and within the right frontal sinus. Findings indicate chronic sinusitis and are unchanged in comparison to recent previous study. Calcified material at the base of the left maxillary sinus may be secondary to chronic inspissated secretions versus mycetoma. IMPRESSION: 1. Related involutional changes of parenchymal volume loss and microvascular ischemia. 2. No acute intracranial abnormality. No significant interval change. 3. Evidence of chronic bilateral maxillary sinusitis with inflammatory changes also observed and right-sided ethmoid air cells and right frontal sinus. CTA chest with contrast INDICATION : elevated d-dimer, syncope. TECHNIQUE: Axial imaging performed through the chest, with contrast bolus timing set to maximize opacification of the pulmonary arteries. 3-plane MIP reformatted images were obtained. All CT scans at this location are performed using CT dose reduction for ALARA by means of automated exposure control. 100 mL of intravenous contrast administered. COMPARISON: None FINDINGS: Bolus: Contrast bolus timing is adequate. PTE: No filling defect is present to suggest PTE. Mediastinum: Heart and great vessels appear normal. No pathologic mediastinal adenopathy. Lungs: There is minimal bibasilar atelectasis with otherwise clear lungs. Upper abdomen: Limited imaging of the upper abdomen shows nothing acute. Bones: Degenerative changes in the spine with nothing acute. IMPRESSION: Negative for PTE. Clear lungs. - Medical Decision Making Patient is an 89-year-old female that presents emergency room with altered mental status, syncope and hypotension. Patient brought in by EMS. Patient initially was more lethargic but arousable. Patient was given fluids by EMS and her blood pressure and heart rate improved. After initial evaluation, neurology and code stroke initiated. Neurology recommended admission, MRI, altered mental status work-up and did not recommend TPA. Neurology also did not recommend further advanced imaging. Patient had EKG which was negative for acute findings. Patient's chest x-ray was negative for acute findings.. Patient's head CT was negative for acute findings. Patient had a D-dimer checked and it was elevated so the patient had a CTA. Patient CT of the chest was negative for acute findings and PE. Patient admitted to the hospitalist service for further evaluation and treatment. - Differential Diagnosis Syncope, altered mental status, dehydration, hypotension, UTI, Critical Care Time: Yes Critical care time in (mins) excluding proc time.: 35 Critical care attestation.: If time is entered above; I have spent that time in minutes in the direct care of this critically ill patient, excluding procedure time. Critical Care Time: 35 minutes ED Disposition Clinical Impression: Elevated d-dimer, Hypercalcemia Syncope Qualifiers: Syncope type: unspecified Qualified Code(s): R55 - Syncope and collapse Altered mental state Qualifiers: Altered mental status type: unspecified Qualified Code(s): R41.82 - Altered mental status, unspecified Hypotension Qualifiers: Hypotension type: unspecified hypotension type Qualified Code(s): I95.9 - Hypotension, unspecified Disposition: DC-09 OP ADMIT IP TO THIS HOSP Is pt being admited?: Yes Does the pt Need Aspirin: No Condition: Stable Time of Disposition: 19:49
[2019-12-10 17:50] LABS: Basophils # (Auto) 0.1 K/mm3 (0.0-0.1); Eosinophils # (Auto) 0.1 K/mm3 (0.0-0.4); Eosinophils % (Auto) 1.7 % (0.0-4.3); Hemoglobin 12.4 gm/dl (10.1-14.3); Mean Corpuscular HGB Conc 33 % (30-34); Mean Corpuscular Volume 87 fl (79-97); Monocytes # (Auto) 0.4 K/mm3 (0.0-0.8); Monocytes % (Auto) 5.8 % (0.0-7.3); Platelet Count 212 K/mm3 (140-440); Red Blood Count 4.24 M/mm3 (3.65-5.03); Red Cell Distribution Width 14.3 % (13.2-15.2)
--- NOTE | 2019-12-10 17:56 | XRay Report ---
CHEST 1 VIEW 12/10/2019 5:32 PM INDICATION / CLINICAL INFORMATION: Altered mental status. COMPARISON: 06/22/2019 FINDINGS: SUPPORT DEVICES: Cardiac pacemaker leads appear in unchanged appropriate position. HEART / MEDIASTINUM: No significant abnormality. LUNGS / PLEURA: No significant pulmonary or pleural abnormality. No pneumothorax. ADDITIONAL FINDINGS: No significant additional findings. IMPRESSION: 1. No acute findings. Signer Name: Garfield Ghosh MD Signed: 12/10/2019 5:51 PM Workstation Name: [id number]
--- NOTE | 2019-12-10 17:56 | Cat Scan Report ---
CT HEAD WITHOUT CONTRAST INDICATION / CLINICAL INFORMATION: Stroke symptoms. Altered mental status. Hypotension. TECHNIQUE: All CT scans at this location are performed using CT dose reduction for ALARA by means of automated e xposure control. COMPARISON: CT 06/22/2019 and 04/25/2018 FINDINGS: HEMORRHAGE: No evidence of intracranial hemorrhage or extra-axial fluid collection. EXTRA-AXIAL SPACES: Cortical sulci and sylvian fissures are enlarged reflecting a degree of parenchym al volume loss which is within normal limits for the patient's age of 89 years. Basilar cisterns have an unremarkable appearance. VENTRICULAR SYSTEM: The third and lateral ventricles are enlarged reflecting presence of age related parenchymal volume loss. CEREBRAL PARENCHYMA: Periventricular and deep white matter lucency is observed. This is probably seco ndary to microvascular ischemic change. There is no indication of recent infarction. No areas of ence phalomalacia are identified. MIDLINE SHIFT OR HERNIATION: There is no mass effect. CEREBELLUM / BRAINSTEM: Brainstem has an unremarkable appearance. Age related cerebellar atrophy is n oted. MIDLINE STRUCTURES:Pituitary gland has an unremarkable appearance. No abnormalities are seen in the p ineal region. INTRACRANIAL VESSELS:Calcified atherosclerotic plaque is present along the course of the cavernous se gments of both internal carotid arteries. ORBITS: Status post bilateral cataract surgery. No additional abnormality. SOFT TISSUES of HEAD: No significant abnormality. CALVARIUM: Evaluation of bone windows reveals no abnormalities. PARANASAL SINUSES / MASTOID AIR CELLS: Persistent bilateral maxillary sinus inflammatory changes are noted with complete opacification of the right maxillary sinus and subtotal opacification of the left maxillary sinus. In addition there is mucosal disease within anterior ethmoid air cells on the right and within the right frontal sinus. Findings indicate chronic sinusitis and are unchanged in compari son to recent previous study. Calcified material at the base of the left maxillary sinus may be secon saray to chronic inspissated secretions versus mycetoma. IMPRESSION: 1. Related involutional changes of parenchymal volume loss and microvascular ischemia. 2. No acute intracranial abnormality. No significant interval change. 3. Evidence of chronic bilateral maxillary sinusitis with inflammatory changes also observed and righ t-sided ethmoid air cells and right frontal sinus. CODE STROKE: Time of Communication (LINK TRAINER TEACHER/CDT): 9055 Central standard time Licensed Practitioner Receiving Report: Dr Whitlock of the [facility] emergency department. Signer Name: Artis Cotton MD Signed: 12/10/2019 5:52 PM Workstation Name: [id number]
[2019-12-10 18:03] LABS: INR 1.09 (0.87-1.13)
[2019-12-10 18:04] LABS: Partial Thromboplastin Time 24.6 Sec. (24.2-36.6); Thrombin Time 16.3 Sec. (15.1-19.6)
[2019-12-10 18:13] LABS: Alanine Aminotransferase 8 units/L (7-56); Albumin 3.5 g/dL (3.9-5); Blood Urea Nitrogen 11 mg/dL (7-17); Calcium 10.5 mg/dL (8.4-10.2); Hemolysis Index 3
[2019-12-10 18:15] LABS: Creatine Kinase MB < 1.0 ng/mL (0.0-4.0)
[2019-12-10 18:16] LABS: BUN/Creatinine Ratio 16
--- NOTE | 2019-12-10 19:17 | Emergency Department Report ---
ED Neuro Deficit HPI - General Chief Complaint: Altered Mental Status Stated Complaint: ALTERED MENTAL STATUS/HYPOTENSION Time Seen by Provider: 12/10/19 17:09 Source: EMS Mode of arrival: Stretcher Limitations: Altered Mental Status, Physical Limitation - History of Present Illness Initial Comments: [facility] Date of Service: 12/10/2019 17:19:10 Impression: syncope Comments/Sign-Out: the patient had syncope with hypotension and has had prior episodes of syncope. She has a pacemaker and it sounds like she responded to fluid resuscitation in terms of her blood pressure. Feel that she had hypotensive syncope unclear if this is due to volume depletion or other cause. Sounds like she was mildly carmen ycardic when this occurred as well. Her exam is nonfocal she does not have any deficit aside from being disoriented and suspect this is near her demented baseline. Do not feel she needs a full stroke workup. No family at bedside to confirm or deny what her baseline is. Low suspicion for seizure although certainly can't confirm with family whether or not she had any evidence of seizure-like activity. Would be helpful to interrogate her pacemaker. Metrics: Last Known Well: 12/10/2019 16:45:00 [facility] Notification Time: 12/10/2019 17:18:50 Arrival Time: 12/10/2019 16:52:00 Stamp Time: 12/10/2019 17:19:10 Time First Login Attempt: 12/10/2019 17:23:15 Video Start Time: 12/10/2019 17:23:15 Symptoms: syncope/AMS NIHSS Start Assessment Time: 12/10/2019 17:29:51 Patient is not a candidate for Alteplase/Activase. Patient was not deemed candidate for Alteplase/Activase thrombolytics because of Use of NOAs within 48 hours. Video End Time: 12/10/2019 17:44:30 CT head showed no acute hemorrhage or acute core infarct. Clinical Presentation is not Suggestive of Large Vessel Occlusive Disease Radiologist was not called back for review of advanced imaging because ED Physician notified of diagnostic impression and management plan on 12/10/2019 17:45:41 Our recommendations are outlined below. Recommendations: Euglycemia and Avoid Hyperthermia (PRN Acetaminophen) she may continue eliquis Sign Out: Discussed with Emergency Department Provider History of Present Illness: Patient is a 89 year old Female. Patient was brought by EMS for symptoms of syncope/AMS The patient is an 89 year old woman with a hx of syncope who had an episode of syncope at home. When EMS arrived systolic bp in the 80s with bradycardia. She was given IVF with improvement in her awareness but still was confused. She has a hx of dementia unknown baseline oriented only to person. Also has a hx of a- fib. Als o has a pacer wit AV block. EMS did not bring a medication list. Past Medical History: Atrial Fibrillation Anticoagulant use: Eliquis Antiplatelet use: No Examination: BP(130 systolic), Pulse(paced 60bpm), Blood Glucose(normal ) 1A: Level of Consciousness - Arouses to minor stimulation + 1 1B: Ask Month and Age - Could Not Answer Either Question Correctly + 2 1C: Blink Eyes & Squeeze Hands - Performs Both Tasks + 0 2: Test Horizontal Extraocular Movements - Normal + 0 3: Test Visual Lindsay - No Visual Loss + 0 4: Test Facial Palsy (Use Grimace if Obtunded) - Normal symmetry + 0 5A: Test Left Arm Motor Drift - No Drift for 10 Seconds + 0 5B: Test Right Arm Motor Drift - No Drift for 10 Seconds + 0 6A: Test Left Leg Motor Drift - No Drift for 5 Seconds + 0 6B: Test Right Leg Motor Drift - No Drift for 5 Seconds + 0 7: Test Limb Ataxia (FNF/Heel-Panda) - No Ataxia + 0 8: Test Sensation - Normal; No sensory loss + 0 9: Test Language/Aphasia - Normal; No aphasia + 0 10: Test Dysarthria - Normal + 0 11: Test Extinction/Inattention - No abnormality + 0 NIHSS Score: 3 Patient/Family was informed the Neurology Consult would happen via TeleHealth consult by way of interactive audio and video telecommunications and consented to receiving care in this manner. Due to the immediate potential for life-threatening deterioration due to underlying acute neurologic illness, I spent 35 minutes providing critical care. This time includes time for face to face visit via telemedicine, review of medical records, imaging studies and discussion of findings with providers, the patient and/or family. Dr Gertrude Salmon [facility] Case [id number] Severity: severe - Related Data Home Medications: Previous Rx's Medication Instructions Recorded Last Taken Type Donepezil HCl 10 mg PO HS #30 tablet 04/27/18 Unknown Rx Meclizine [Antivert] 25 mg PO BID PRN #60 tablet 04/27/18 Unknown Rx Aspirin [Aspirin BABY CHEW TAB] 81 mg PO QDAY #30 tab.chew 06/24/19 Unknown Rx Allergies/Adverse Reactions: Allergies Allergy/AdvReac Type Severity Reaction Status Date / Time ibuprofen Allergy Intermediate Itching Verified 06/22/19 18:17 ED Review of Systems ROS: Stated complaint: ALTERED MENTAL STATUS/HYPOTENSION Other details as noted in HPI ED Past Medical Hx - Past Medical History Previous Medical History?: Yes Hx Congestive Heart Failure: No Hx Diabetes: No Hx Arthritis: Yes Hx Asthma: No Hx COPD: No 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 Vertigo. Pacemaker. 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 pacemaker - Social History Smoking Status: Never Smoker Substance Use Type: None - Medications Home Medications: Home Medications Medication Instructions Recorded Confirmed Last Taken Type Donepezil HCl 10 mg PO HS #30 tablet 04/27/18 06/22/19 Unknown Rx Meclizine [Antivert] 25 mg PO BID PRN #60 tablet 04/27/18 06/22/19 Unknown Rx Aspirin [Aspirin BABY CHEW TAB] 81 mg PO QDAY #30 tab.chew 06/24/19 Unknown Rx ED Neuro Physical Exam - General Limitations: Altered Mental Status, Physical Limitation General appearance: in no apparent distress, lethargic Suspected Stroke: No ED Course Vital Signs 12/10/19 17:40 Temperature 97.6 F Pulse Rate 61 Respiratory 19 Rate Blood Pressure 128/51 [Left] O2 Sat by Pulse 97 Oximetry - Lab Data Result diagrams: 12/10/19 17:42 12/10/19 17:42 Lab Results 10/14/20 10/14/20 10/14/20 Range/Units 17:42 17:42 17:42 WBC 6.8 (4.5-11.0) K/mm3 RBC 4.24 (3.65-5.03) M/mm3 Hgb 12.4 (10.1-14.3) gm/dl Hct 37.0 (30.3-42.9) % MCV 87 (79-97) fl MCH 29 (28-32) pg MCHC 33 (30-34) % RDW 14.3 (13.2-15.2) % Plt Count 212 (140-440) K/mm3 Lymph % (Auto) 30.0 (13.4-35.0) % Swisher % (Auto) 5.8 (0.0-7.3) % Eos % (Auto) 1.7 (0.0-4.3) % Baso % (Auto) 1.0 (0.0-1.8) % Lymph # (Auto) 2.0 (1.2-5.4) K/mm3 Swisher # (Auto) 0.4 (0.0-0.8) K/mm3 Eos # (Auto) 0.1 (0.0-0.4) K/mm3 Baso # (Auto) 0.1 (0.0-0.1) K/mm3 Seg Neutrophils % 61.5 (40.0-70.0) % Seg Neutrophils # 4.2 (1.8-7.7) K/mm3 PT 14.2 (12.2-14.9) Sec. INR 1.09 (0.87-1.13) APTT 24.6 (24.2-36.6) Sec. Thrombin Time 16.3 (15.1-19.6) Sec. D-Dimer (0-234) ng/mlDDU Sodium 140 (137-145) mmol/L Potassium 4.7 (3.6-5.0) mmol/L Chloride 106.1 (98-107) mmol/L Carbon Dioxide 21 L (22-30) mmol/L Anion Gap 18 mmol/L BUN 11 (7-17) mg/dL Creatinine 0.7 (0.6-1.2) mg/dL Estimated GFR > 60 ml/min BUN/Creatinine Ratio 16 % Glucose 154 H (65-100) mg/dL POC Glucose (70-105) Calcium 10.5 H (8.4-10.2) mg/dL Total Bilirubin 0.80 (0.1-1.2) mg/dL AST 15 (5-40) units/L ALT 8 (7-56) units/L Alkaline Phosphatase 114 (35-129) units/L Total Creatine Kinase 26 L (30-135) units/L CK-MB (CK-2) < 1.0 (0.0-4.0) ng/mL CK-MB (CK-2) Rel Index 3.8 (0-4) Troponin T < 0.010 (0.00-0.029) ng/mL Total Protein 7.0 (6.3-8.2) g/dL Albumin 3.5 L (3.9-5) g/dL Albumin/Globulin Ratio 1.0 % 12/10/19 12/10/19 Range/Units 18:34 18:57 WBC (4.5-11.0) K/mm3 RBC (3.65-5.03) M/mm3 Hgb (10.1-14.3) gm/dl Hct (30.3-42.9) % MCV (79-97) fl MCH (28-32) pg MCHC (30-34) % RDW (13.2-15.2) % Plt Count (140-440) K/mm3 Lymph % (Auto) (13.4-35.0) % Swisher % (Auto) (0.0-7.3) % Eos % (Auto) (0.0-4.3) % Baso % (Auto) (0.0-1.8) % Lymph # (Auto) (1.2-5.4) K/mm3 Swisher # (Auto) (0.0-0.8) K/mm3 Eos # (Auto) (0.0-0.4) K/mm3 Baso # (Auto) (0.0-0.1) K/mm3 Seg Neutrophils % (40.0-70.0) % Seg Neutrophils # (1.8-7.7) K/mm3 PT (12.2-14.9) Sec. INR (0.87-1.13) APTT (24.2-36.6) Sec. Thrombin Time (15.1-19.6) Sec. D-Dimer 439.2 H (0-234) ng/mlDDU Sodium (137-145) mmol/L Potassium (3.6-5.0) mmol/L Chloride (98-107) mmol/L Carbon Dioxide (22-30) mmol/L Anion Gap mmol/L BUN (7-17) mg/dL Creatinine (0.6-1.2) mg/dL Estimated GFR ml/min BUN/Creatinine Ratio % Glucose (65-100) mg/dL POC Glucose 112 H (70-105) Calcium (8.4-10.2) mg/dL Total Bilirubin (0.1-1.2) mg/dL AST (5-40) units/L ALT (7-56) units/L Alkaline Phosphatase (35-129) units/L Total Creatine Kinase (30-135) units/L CK-MB (CK-2) (0.0-4.0) ng/mL CK-MB (CK-2) Rel Index (0-4) Troponin T (0.00-0.029) ng/mL Total Protein (6.3-8.2) g/dL Albumin (3.9-5) g/dL Albumin/Globulin Ratio % Critical care attestation.: If time is entered above; I have spent that time in minutes in the direct care of this critically ill patient, excluding procedure time. ED Disposition Clinical Impression: Syncope Qualifiers: Syncope type: unspecified Qualified Code(s): R55 - Syncope and collapse Disposition: OP ADMIT IP TO THIS HOSP Is pt being admited?: Yes Condition: Stable Instructions: Syncope (ED) Referrals: PRIMARY CARE, [Primary Care Provider] - 3-5 Days
--- NOTE | 2019-12-10 19:29 | History and Physical Report ---
History of Present Illness Chief complaint: She fell out History of present illness: 89 YO Female with Atrial Fib not currently on Therapeutic Anticoagulation due to fall risk, OA, Angina, SSS S/P Pacemaker Placement, Vertigo, Vascular Dementia, Cerebral Atherosclerosis presents to ED for evaluation. Pt is confused and lethargic and is unable to provide history at the time of my evaluation. Pt history is provided by EMS staff, ED staff, and patient daughter who was notified via telephone. As per daughter, the patient was found to have fallen to the bathroom floor while attempting to ambulate in the dark. Pt was found lying on the floor. EMS notified and upon arrival the patient was found to be in distress and transported to [facility] for further care and evaluation of the aforementioned symptoms. Pt seen and evaluated in ED and found to have Encephalopathy, Orthostatic hypotension, as well as Sick Sinus Syndrome. Pt admitted to telemetry and placed in observation status. No reports of fever, chills, chest pain, palpitation, productive cough, skin rash, recent ill contacts, or known exposure to COVID-19. Prior admission on 06/23/2019 reviewed. All medication listed at time of admission has been reconciled. Advanced care planning conducted in the emergency department. Past History Past Medical History: atrial fib, other (See HPI) Past Surgical History: cataract removal, Other (Pacemaker placement) Social history: single. denies: smoking, alcohol abuse, prescription drug abuse Family history: hypertension Medications and Allergies Allergies Allergy/AdvReac Type Severity Reaction Status Date / Time ibuprofen Allergy Intermediate Itching Verified 06/22/19 18:17 Home Medications Medication Instructions Recorded Confirmed Last Taken Type Donepezil HCl 10 mg PO HS #30 tablet 04/27/18 06/22/19 Unknown Rx Meclizine [Antivert] 25 mg PO BID PRN #60 tablet 04/27/18 06/22/19 Unknown Rx Aspirin [Aspirin BABY CHEW TAB] 81 mg PO QDAY #30 tab.chew 06/24/19 Unknown Rx Review of Systems ROS unobtainable: due to mental status Exam - Constitutional Vitals: Temp Pulse Resp BP Pulse Ox 97.6 F 60 19 128/51 97 12/10/19 17:40 12/10/19 19:22 12/10/19 17:40 12/10/19 17:40 12/10/19 17:40 General appearance: Present: mild distress (Tessalon Perles twice daily thank you Kendell thank you) - EENT Eyes: Present: PERRL ENT: clear oral mucosa, hearing decreased - Neck Neck: Present: supple, normal ROM - Respiratory Respiratory effort: normal Respiratory: bilateral: CTA - Cardiovascular Heart Sounds: Present: S1 & S2. Absent: rub, click - Extremities Extremities: pulses symmetrical, No edema Peripheral Pulses: within normal limits - Abdominal General gastrointestinal: Present: soft, non-tender, non-distended, normal bowel sounds Female genitourinary: Present: normal - Integumentary Integumentary: Present: clear, warm, dry - Musculoskeletal Musculoskeletal: generalized weakness - Psychiatric Psychiatric: no appropriate mood/affect, no intact judgment & insight - Neurologic Neurologic: CNII-XII intact, moves all extremities HEART Score - HEART Score Troponin: Troponin T < 0.010 ng/mL (0.00-0.029) 12/10/19 17:42 Results - Labs CBC & Chem 7: 12/10/19 17:42 12/10/19 17:42 Labs: Abnormal lab results 12/10/19 12/10/19 12/10/19 Range/Units 17:42 18:34 18:57 D-Dimer 439.2 H (0-234) ng/mlDDU Carbon Dioxide 21 L (22-30) mmol/L Glucose 154 H (65-100) mg/dL POC Glucose 112 H (70-105) Calcium 10.5 H (8.4-10.2) mg/dL Total Creatine Kinase 26 L (30-135) units/L Albumin 3.5 L (3.9-5) g/dL Assessment and Plan - Patient Problems (1) Sick sinus syndrome Current Visit: Yes Status: Acute Plan to address problem: Admit to telemetry, supportive care, telemetry monitoring overnight. (2) Vascular dementia Current Visit: Yes Status: Acute Qualifiers: Dementia behavioral disturbance: without behavioral disturbance Qualified Code(s): F01.50 - Vascular dementia without behavioral disturbance Plan to address problem: Supportive care, verbal prompting, verbal redirection, benzodiazepine therapy as clinically indicated. (3) Cerebral atherosclerosis Current Visit: Yes Status: Acute Plan to address problem: Supportive care, risk factor reduction. CT scan head, fall precautions, supportive care. (4) Orthostatic hypotension Current Visit: Yes Status: Acute Plan to address problem: IV fluid resuscitation therapy, monitor blood pressure every shift, monitor urine output every shift, (5) Atrial fibrillation Current Visit: Yes Status: Acute Plan to address problem: Rate control, supportive care, hold therapeutic anticoagulation due to fall risk. (6) Advance care planning Current Visit: Yes Status: Acute Plan to address problem: Disease education conducted, patient is full code, prognosis discussed, patient family knowledges understanding and agreement with care plan.
[2019-12-10] MEDS ORDERED: ONDANSETRON 4 MG/2 ML INJ IV PRN (19:36)
[2019-12-10] MEDS ORDERED: MECLIZINE 25 MG TAB PO PRN (19:38)
--- NOTE | 2019-12-10 20:08 | Cat Scan Report ---
CTA chest with contrast INDICATION : elevated d-dimer, syncope. TECHNIQUE: Axial imaging performed through the chest, with contrast bolus timing set to maximize opa cification of the pulmonary arteries. 3-plane MIP reformatted images were obtained. All CT scans at this location are performed using CT dose reduction for ALARA by means of automated exposure control. 100 mL of intravenous contrast administered. COMPARISON: None FINDINGS: Bolus: Contrast bolus timing is adequate. PTE: No filling defect is present to suggest PTE. Mediastinum: Heart and great vessels appear normal. No pathologic mediastinal adenopathy. Lungs: There is minimal bibasilar atelectasis with otherwise clear lungs. Upper abdomen: Limited imaging of the upper abdomen shows nothing acute. Bones: Degenerative changes in the spine with nothing acute. IMPRESSION: Negative for PTE. Clear lungs. Signer Name: Michael Hunt MD Signed: 12/10/2019 8:03 PM Workstation Name: [id number]
[2019-12-10 21:09] LABS: Bilirubin,Urine NEG (Negative); Blood,Urine SM (Negative); Color,Urine Colorless (Yellow); Protein,Urine <15 mg/dL mg/dL (Negative); Urobilinogen,Urine < 2.0 mg/dL (<2.0)
[2019-12-10] MEDS: DONEPEZIL 5 MG TAB PO SCH (22:29)
[2019-12-11 06:58] LABS: Alanine Aminotransferase 9 units/L (7-56); Albumin 3.3 g/dL (3.9-5); Blood Urea Nitrogen 7 mg/dL (7-17); Calcium 10.6 mg/dL (8.4-10.2); Hemolysis Index 110
[2019-12-11 07:02] LABS: BUN/Creatinine Ratio 14
[2019-12-11] MEDS: ASPIRIN 81 MG TAB CHEW PO SCH (10:34)
[2019-12-11] MEDS: ACETAMINOPHEN 325 MG TAB PO PRN (10:35)
--- NOTE | 2019-12-11 17:17 | Progress Note ---
Assessment and Plan - Patient Problems (1) Sick sinus syndrome Current Visit: Yes Status: Acute Plan to address problem: Patient in paced rhythm Still lightheaded and feeling weak Some shortness of breath present (2) autonomic imbalance IV fluids adjusted and medications adjusted Neurology consult appreciated (3) Cerebral atherosclerosis Current Visit: Yes Status: Acute Plan to address problem: Supportive care, risk factor reduction. CT scan head, fall precautions, supportive care. (4) Orthostatic hypotension Current Visit: Yes Status: Acute Plan to address problem: Blood pressure improved (5) Atrial fibrillation Current Visit: Yes Status: Acute Plan to address problem: Rate control, supportive care, hold therapeutic anticoagulation due to fall risk. (6) Advance care planning Current Visit: Yes Status: Acute Plan to address problem: Disease education conducted, patient is full code, prognosis discussed, patient family knowledges understanding and agreement with care plan. Subjective Date of service: 12/11/19 Principal diagnosis: Sick sinus syndrome, syncope, hypotension Interval history: 89 YO Female with Atrial Fib not currently on Therapeutic Anticoagulation due to fall risk, OA, Angina, SSS S/P Pacemaker Placement, Vertigo, Vascular Dementia, Cerebral Atherosclerosis presents to ED for evaluation. Pt is confused and lethargic and is unable to provide history at the time of my evaluation. Pt history is provided by EMS staff, ED staff, and patient daughter who was notified via telephone. As per daughter, the patient was found to have fallen to the bathroom floor while attempting to ambulate in the dark. Pt was found lying on the floor. EMS notified and upon arrival the patient was found to be in distress and transported to [facility] for further care and evaluation of the aforementioned symptoms. Pt seen and evaluated in ED and found to have Encephalopathy, Orthostatic hypotension, as well as Sick Sinus Syndrome. Pt admitted to telemetry and placed in observation status. No reports of fever, chills, chest pain, palpitation, productive cough, skin rash, recent ill contacts, or known exposure to COVID-19. Prior admission on 06/23/2019 reviewed. All medication listed at time of admission has been reconciled. Advanced care planning conducted in the emergency department. 12/11/2019 patient symptomatically doing better Has some shortness of breath Heart rate in 70s and paced Waiting for neurology evaluation Objective - Constitutional Vitals: Vital Signs - 12hr 12/11/19 07:48 Temperature 98.6 F Pulse Rate 71 Respiratory 20 Rate Blood Pressure 156/57 O2 Sat by Pulse 96 Oximetry General appearance: Present: no acute distress, well-nourished - EENT Eyes: PERRL, EOM intact ENT: hearing intact, clear oral mucosa Ears: bilateral: normal - Neck Neck: supple, normal ROM - Respiratory Respiratory effort: normal Respiratory: bilateral: CTA - Breasts Breasts: normal - Cardiovascular Heart rate: 70 Rhythm: regular Heart Sounds: Present: S1 & S2. Absent: gallop, rub Extremities: pulses intact, No edema, normal color, Full ROM - Gastrointestinal General gastrointestinal: Present: soft, non-tender, non-distended, normal bowel sounds - Genitourinary Female genitourinary: normal - Integumentary Integumentary: clear, warm, dry - Musculoskeletal Musculoskeletal: 1, strength equal bilaterally - Neurologic Neurologic: moves all extremities - Psychiatric Psychiatric: memory intact, appropriate mood/affect, intact judgment & insight - Labs CBC & Chem 7: 12/12/19 04:26 12/12/19 04:26 Labs: Abnormal lab results 12/10/19 12/10/19 12/10/19 Range/Units 17:42 18:34 18:57 D-Dimer 439.2 H (0-234) ng/mlDDU Chloride (98-107) mmol/L Carbon Dioxide 21 L (22-30) mmol/L Creatinine (0.6-1.2) mg/dL Glucose 154 H (65-100) mg/dL POC Glucose 112 H (70-105) Calcium 10.5 H (8.4-10.2) mg/dL Total Creatine Kinase 26 L (30-135) units/L Albumin 3.5 L (3.9-5) g/dL 12/11/19 Range/Units 05:58 D-Dimer (0-234) ng/mlDDU Chloride 107.4 H (98-107) mmol/L Carbon Dioxide 20 L (22-30) mmol/L Creatinine 0.5 L (0.6-1.2) mg/dL Glucose (65-100) mg/dL POC Glucose (70-105) Calcium 10.6 H (8.4-10.2) mg/dL Total Creatine Kinase (30-135) units/L Albumin 3.3 L (3.9-5) g/dL HEART Score - HEART Score Troponin: Troponin T < 0.010 ng/mL (0.00-0.029) 12/10/19 17:42
[2019-12-11] MEDS: DONEPEZIL 5 MG TAB PO SCH (21:52)
[2019-12-12 05:23] LABS: Basophils % (Auto) 0.5 % (0.0-1.8); Eosinophils # (Auto) 0.2 K/mm3 (0.0-0.4); Eosinophils % (Auto) 2.5 % (0.0-4.3); Hematocrit 38.4 % (30.3-42.9); Hemoglobin 12.5 gm/dl (10.1-14.3); Lymphocytes # (Auto) 3.5 K/mm3 (1.2-5.4); Lymphocytes % (Auto) 49.2 % (13.4-35.0); Mean Corpuscular HGB Conc 33 % (30-34); Mean Corpuscular Volume 88 fl (79-97); Monocytes # (Auto) 0.6 K/mm3 (0.0-0.8); Monocytes % (Auto) 8.5 % (0.0-7.3); Platelet Count 204 K/mm3 (140-440); Red Blood Count 4.38 M/mm3 (3.65-5.03); Red Cell Distribution Width 14.1 % (13.2-15.2)
[2019-12-12 06:40] LABS: Alanine Aminotransferase 8 units/L (7-56); Albumin 3.7 g/dL (3.9-5); Blood Urea Nitrogen 13 mg/dL (7-17); Hemolysis Index 16
[2019-12-12 06:46] LABS: BUN/Creatinine Ratio 22
[2019-12-12] MEDS: VALSARTAN 160MG TAB PO SCH (10:23)
[2019-12-12] MEDS: ASPIRIN 81 MG TAB CHEW PO SCH (10:24)
[2019-12-12] MEDS: ACETAMINOPHEN 325 MG TAB PO PRN (10:29)
[2019-12-12] MEDS: DONEPEZIL 5 MG TAB PO SCH (21:24)
[2019-12-13] MEDS: ASPIRIN 81 MG TAB CHEW PO SCH (09:14)
[2019-12-13] MEDS: VALSARTAN 160MG TAB PO SCH (09:14)
--- NOTE | 2019-12-13 16:39 | Discharge Summary ---
Providers - Providers Date of Admission: 12/11/19 12:00 Date of discharge: 12/13/19 Attending physician: KYRA RODRIGUEZ Primary care physician: [employer] Hospitalization Condition: Stable Hospital course: Subjective Date of service: 12/13/19 Principal diagnosis: Sick sinus syndrome, syncope, hypotension Interval history: 89 YO Female with Atrial Fib not currently on Therapeutic Anticoagulation due to fall risk, OA, Angina, SSS S/P Pacemaker Placement, Vertigo, Vascular Dementia, Cerebral Atherosclerosis presents to ED for evaluation. Pt is confused and lethargic and is unable to provide history at the time of my evaluation. Pt history is provided by EMS staff, ED staff, and patient daughter who was notified via telephone. As per daughter, the patient was found to have fallen to the bathroom floor while attempting to ambulate in the dark. Pt was found lying on the floor. EMS notified and upon arrival the patient was found to be in distress and transported to [facility] for further care and evaluation of the aforementioned symptoms. Pt seen and evaluated in ED and found to have Enc ephalopathy, Orthostatic hypotension, as well as Sick Sinus Syndrome. Pt admitted to telemetry and placed in observation status. No reports of fever, chills, chest pain, palpitation, productive cough, skin rash, recent ill contacts, or known exposure to COVID-19. Prior admission on 06/23/2019 reviewed. All medication listed at time of admission has been reconciled. Advanced care planning conducted in the emergency department. 12/11/2019 patient symptomatically doing better Has some shortness of breath Heart rate in 70s and paced Waiting for neurology evaluation 12/12/2019 Still some shortness of breath present. Feeling weak. Physical therapy Discussed with daughter at length Patient does not drink much fluids solids just 12/13/2019 Patient doing much better Heart rate in 70s to 80s and paced rhythm Shortness of breath better Discussed with daughter at length. (1) Sick sinus syndrome Current Visit: Yes Status: Acute Plan to address problem: Patient in paced rhythm Still lightheaded and feeling weak Some shortness of breath present (2) autonomic imbalance IV fluids adjusted and medications adjusted Neurology consult appreciated the patient had syncope with hypotension and has had prior episodes of syncope. She has a pacemaker and it sounds like she responded to fluid resuscitation in terms of her blood pressure. Feel that she had hypotensive syncope unclear if this is due to volume depletion or other cause. Sounds like she was mildly bradycardic when this occurred as well. Her exam is nonfocal she does not have any deficit aside from being disoriented and suspect this is near her demented baseline. Do not feel she needs a full stroke workup. Talked with the family and agrees about the dehydration. Family Enck to encourage increased fluid intake. (3) Orthostatic hypotension Current Visit: Yes Status: Acute Plan to address problem: Blood pressure improved (4) Atrial fibrillation Current Visit: Yes Status: Acute Plan to address problem: Rate control, supportive care, hold therapeutic anticoagulation due to fall risk. 5) Advance care planning Current Visit: Yes Status: Acute Plan to address problem: Disease education conducted, patient is full code, prognosis discussed, patient family knowledges understanding and agreement with care plan. Disposition: - TO HOME OR SELFCARE - Discharge Diagnoses (1) Sick sinus syndrome Status: Acute (2) Atrial fibrillation Status: Chronic (3) Orthostatic hypotension Status: Acute Comment: Improved (4) Vascular dementia Status: Chronic Qualifiers: Dementia behavioral disturbance: without behavioral disturbance Qualified Code(s): F01.50 - Vascular dementia without behavioral disturbance Comment: Supportive care (5) Dehydration Status: Acute Comment: Increased fluid intake Core Measure Documentation - Palliative Care Palliative Care/ Comfort Measures: Not Applicable - Core Measures Any of the following diagnoses?: none Exam - Constitutional Vitals: Temp Pulse Resp BP Pulse Ox 98.2 F 71 18 159/75 78 L 12/13/19 11:16 12/13/19 11:16 12/13/19 11:16 12/13/19 11:16 12/13/19 11:16 General appearance: Present: no acute distress, well-nourished - EENT Eyes: Present: PERRL ENT: hearing intact, clear oral mucosa - Neck Neck: Present: supple, normal ROM - Respiratory Respiratory effort: normal Respiratory: bilateral: CTA - Cardiovascular Heart rate: 70 Rhythm: irregularly irregular Heart Sounds: Present: S1 & S2. Absent: rub, click - Extremities Extremities: pulses symmetrical, No edema Peripheral Pulses: within normal limits - Abdominal General gastrointestinal: Present: soft, non-tender, non-distended, normal bowel sounds Female genitourinary: Present: normal - Integumentary Integumentary: Present: clear, warm, dry - Musculoskeletal Musculoskeletal: gait normal, strength equal bilaterally - Psychiatric Psychiatric: appropriate mood/affect, intact judgment & insight, other (Dementia early) - Neurologic Neurologic: CNII-XII intact, moves all extremities - Allied Health Allied health notes reviewed: nursing, case management Plan Activity: no restrictions Diet: regular Follow up with: PRIMARY CARE, [Primary Care Provider] - 7 Days SHANTELLE POE MD [Staff Physician] - 7 Days
--- NOTE | 2019-12-13 16:39 | Progress Note ---
Assessment and Plan - Patient Problems (1) Sick sinus syndrome Current Visit: Yes Status: Acute Plan to address problem: Patient in paced rhythm Still lightheaded and feeling weak Some shortness of breath present (2) autonomic imbalance IV fluids adjusted and medications adjusted Neurology consult appreciated the patient had syncope with hypotension and has had prior episodes of syncope. She has a pacemaker and it sounds like she responded to fluid resuscitation in terms of her blood pressure. Feel that she had hypotensive syncope unclear if this is due to volume depletion or other cause. Sounds like she was mildly bradycardic when this occurred as well. Her exam is nonfocal she does not have any deficit aside from being disoriented and suspect this is near her demented baseline. Do not feel she needs a full stroke workup. Talked with the family and agrees about the dehydration. Family Enck to encourage increased fluid intake. (3) Orthostatic hypotension Current Visit: Yes Status: Acute Plan to address problem: Blood pressure improved (4) Atrial fibrillation Current Visit: Yes Status: Acute Plan to address problem: Rate control, supportive care, hold therapeutic anticoagulation due to fall risk. 5) Advance care planning Current Visit: Yes Status: Acute Plan to address problem: Disease education conducted, patient is full code, prognosis discussed, patient family knowledges understanding and agreement with care plan. Subjective Date of service: 12/12/19 Principal diagnosis: Sick sinus syndrome, syncope, hypotension Interval history: 89 YO Female with Atrial Fib not currently on Therapeutic Anticoagulation due to fall risk, OA, Angina, SSS S/P Pacemaker Placement, Vertigo, Vascular Dementia, Cerebral Atherosclerosis presents to ED for evaluation. Pt is confused and lethargic and is unable to provide history at the time of my evaluation. Pt history is provided by EMS staff, ED staff, and patient daughter who was notified via telephone. As per daughter, the patient was found to have fallen to the bathroom floor while attempting to ambulate in the dark. Pt was found lying on the floor. EMS notified and upon arrival the patient was found to be in distress and transported to [facility] for further care and evaluation of the aforementioned symptoms. Pt seen and evaluated in ED and found to have Encephal opathy, Orthostatic hypotension, as well as Sick Sinus Syndrome. Pt admitted to telemetry and placed in observation status. No reports of fever, chills, chest pain, palpitation, productive cough, skin rash, recent ill contacts, or known exposure to COVID-19. Prior admission on 06/23/2019 reviewed. All medication listed at time of admission has been reconciled. Advanced care planning conducted in the emergency department. 12/11/2019 patient symptomatically doing better Has some shortness of breath Heart rate in 70s and paced Waiting for neurology evaluation 12/12/2019 Still some shortness of breath present. Feeling weak. Physical therapy requested. Discussed with daughter at length Patient does not drink much fluids Objective - Constitutional Vitals: Vital Signs - 12hr 12/13/19 12/13/19 12/13/19 04:41 07:42 08:00 Temperature 98.8 F 98.2 F Pulse Rate 71 80 80 Respiratory 18 18 Rate Blood Pressure 150/76 182/84 O2 Sat by Pulse 92 98 Oximetry 12/13/19 12/13/19 08:26 11:16 Temperature 98.2 F Pulse Rate 71 Respiratory 18 18 Rate Blood Pressure 159/75 O2 Sat by Pulse 78 L Oximetry General appearance: Present: no acute distress, well-nourished - EENT Eyes: PERRL, EOM intact ENT: hearing intact, clear oral mucosa Ears: bilateral: normal - Neck Neck: supple, normal ROM - Respiratory Respiratory effort: normal Respiratory: bilateral: CTA - Breasts Breasts: normal - Cardiovascular Heart rate: 70 (Paced rhythm) Rhythm: regular Heart Sounds: Present: S1 & S2. Absent: gallop, rub Extremities: pulses intact, No edema, normal color, Full ROM - Gastrointestinal General gastrointestinal: Present: soft, non-tender, non-distended, normal bowel sounds - Genitourinary Female genitourinary: normal - Integumentary Integumentary: clear, warm, dry - Musculoskeletal Musculoskeletal: 1, strength equal bilaterally - Neurologic Neurologic: moves all extremities - Psychiatric Psychiatric: memory intact, appropriate mood/affect, intact judgment & insight - Labs CBC & Chem 7: 12/12/19 04:26 12/12/19 04:26 HEART Score - HEART Score Troponin: Troponin T < 0.010 ng/mL (0.00-0.029) 12/10/19 17:42
[2019-12-13 17:13] VITALS: BP 153/67
== END 2019-12-13 18:50 | disposition home or self-care (01) | DRG 310 ==
LOC: ED 16:52 → 4A 19:36 → OBSVTOIN 12-11 12:00
PROVIDERS: ADMIT Internal Medicine; ATTEND Internal Medicine
DX: I49.5 Sick sinus syndrome (principal); I95.1 Orthostatic hypotension; I67.2 Cerebral atherosclerosis; I48.91 Unspecified atrial fibrillation; Z88.6 Allergy status to analgesic agent; Z79.82 Long term (current) use of aspirin; M19.90 Unspecified osteoarthritis, unspecified site; R79.1 Abnormal coagulation profile; E83.52 Hypercalcemia; Z95.0 Presence of cardiac pacemaker; F01.50 Vascular dementia, unspecified severity, without behavioral disturbance, psychotic disturbance, mood disturbance, and anxiety; Z71.89 Other specified counseling; I27.20 Pulmonary hypertension, unspecified; E86.0 Dehydration; I08.1 Rheumatic disorders of both mitral and tricuspid valves
CPT/HCPCS: 36415; 70450; 71045; 71275; 80053; 81001; 82550; 82553; 82962; 84484; 85025; 85379; 85610; 85670; 85730; 87641; 93005; 93306; 96360; G0378; J7030; Q9967

== ENCOUNTER 2020-05-07 12:32 | Emergency (ER) | payer MEDICAID ==
[2020-05-07] MEDS ORDERED: ACETAMINOPHEN 500 MG TAB PO ONE (12:55)
--- NOTE | 2020-05-07 13:11 | Emergency Department Report ---
ED Fall HPI - General Chief Complaint: Fall Stated Complaint: REPEAT FALLS/HEMATOMA Time Seen by Provider: 05/07/20 12:47 Source: patient, EMS Mode of arrival: Stretcher - History of Present Illness Initial Comments: Chief complaint: Fall, weakness HPI: This is an 89-year-old female with history of sick sinus syndrome status post pacemaker, atrial fibrillation, vascular dementia who presents after fall from toilet. Patient has been weak over the last several days according to daughter's report. I spoke with daughter per phone. Patient had also poor appetite over the last day. Patient states that she is comfortable. She denies any pain. She was transported to the hospital after her daughter called EMS for assistance getting patient up. Daughter informed by phone that patient had headache. 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 Fall Witnessed: yes, by family Place Fall Occurred: home Loss of Consciousness: none Prolonged Down Time?: no Symptoms Prior to Fall: other (Generalized weakness poor appetite) Location: head (Left forehead temporal hematoma) Severity: mild Context: other (Patient fell off toilet and bathroom) Associated Symptoms: headache, other (Weakness poor appetite) - Related Data Previous Rx's Medication Instructions Recorded Last Taken Type Meclizine [Antivert] 25 mg PO BID PRN #60 tablet 04/27/18 Unknown Rx Aspirin [Aspirin BABY CHEW TAB] 81 mg PO QDAY #30 tab.chew 12/13/19 Unknown Rx Furosemide [Lasix TAB] 40 mg PO QDAY #30 12/13/19 Unknown Rx Metoprolol [Lopressor TAB] 25 mg PO BID #60 12/13/19 Unknown Rx Potassium Chloride [K-Dur] 20 meq PO QDAY #30 12/13/19 Unknown Rx Valsartan [Diovan] 160 mg PO DAILY #30 tablet 12/13/19 Unknown Rx donepeziL [Aricept] 10 mg PO HS #30 tablet 12/13/19 Unknown Rx cephALEXin [Keflex] 500 mg PO TID 7 Days #21 cap 05/07/20 Unknown Rx Allergies Allergy/AdvReac Type Severity Reaction Status Date / Time ibuprofen Allergy Intermediate Itching Verified 06/22/19 18:17 ED Review of Systems ROS: Stated complaint: REPEAT FALLS/HEMATOMA Other details as noted in HPI Comment: Unobtainable due to pts medical conditions (History is limited due to dementia) ED Past Medical Hx - Past Medical History Previous Medical History?: Yes Hx Congestive Heart Failure: No Hx Diabetes: No Hx Arthritis: Yes Hx Asthma: No Hx COPD: No Hx Dementia: Yes Additional medical history: angina. Tachybradycardia syndrome. Vertigo. Pacemaker. 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 pacemaker - Social History Smoking Status: Unknown if ever smoked - Medications Home Medications: Home Medications Medication Instructions Recorded Confirmed Last Taken Type Meclizine [Antivert] 25 mg PO BID PRN #60 tablet 04/27/18 12/13/19 Unknown Rx Aspirin [Aspirin BABY CHEW TAB] 81 mg PO QDAY #30 tab.chew 12/13/19 Unknown Rx Furosemide [Lasix TAB] 40 mg PO QDAY #30 12/13/19 Unknown Rx Metoprolol [Lopressor TAB] 25 mg PO BID #60 12/13/19 Unknown Rx Potassium Chloride [K-Dur] 20 meq PO QDAY #30 12/13/19 Unknown Rx Valsartan [Diovan] 160 mg PO DAILY #30 tablet 12/13/19 Unknown Rx donepeziL [Aricept] 10 mg PO HS #30 tablet 12/13/19 Unknown Rx cephALEXin [Keflex] 500 mg PO TID 7 Days #21 cap 05/07/20 Unknown Rx ED Physical Exam - General Limitations: Altered Mental Status General appearance: alert, in no apparent distress - Head Head exam: Present: normocephalic, other (3 cm golf ball hematoma just lateral to the right eyebrow mandaeism region) - Eye Eye exam: Present: normal appearance - ENT ENT exam: Present: mucous membranes moist - Neck Neck exam: Present: normal inspection, full ROM - Respiratory Respiratory exam: Present: normal lung sounds bilaterally. Absent: respiratory distress, wheezes, rhonchi, stridor - Cardiovascular Cardiovascular Exam: Present: regular rate, normal rhythm. Absent: rubs, gallop - GI/Abdominal GI/Abdominal exam: Present: soft, normal bowel sounds. Absent: distended, tenderness - Extremities Exam Extremities exam: Present: normal inspection, other (No deformity no bruising) - Neurological Exam Neurological exam: Present: alert, other (Oriented to person) - Psychiatric Psychiatric exam: Present: normal mood, flat affect - Skin Skin exam: Present: warm, dry, intact, normal color. Absent: rash ED Course Vital Signs 05/07/20 05/07/20 05/07/20 12:54 12:56 13:51 Temperature 97.9 F 97.9 F Pulse Rate 71 71 63 Respiratory 16 16 12 Rate Blood Pressure 154/70 Blood Pressure 154/70 140/66 [Right] O2 Sat by Pulse 97 97 96 Oximetry ED Medical Decision Making - Lab Data Result diagrams: 05/07/20 13:38 05/07/20 13:38 - Radiology Data Radiology results: report reviewed, image reviewed - Medical Decision Making 1. Fall with closed head injury: CT head indicated considering obvious head tr auma in elderly age. CT head without acute skull fracture or intracranial hemorrhage, there is left orbital soft tissue swelling which corresponds to clinical exam 2. Weakness, poor appetite: Patient appears well-hydrated clinically. CBC chemistry within normal limits. Aberrant erroneous elevated potassium due to hemolyzed sample. Repeat potassium not indicated since patient has normal kidne y function. 3. UTI: rx: cephalexin Patient dc'd home Critical care attestation.: If time is entered above; I have spent that time in minutes in the direct care of this critically ill patient, excluding procedure time. ED Disposition Clinical Impression: Closed head injury, Fall in elderly patient, Generalized weakness, Urinary tract infection Disposition: DC-01 TO HOME OR SELFCARE Is pt being admited?: No Does the pt Need Aspirin: No Condition: Stable Instructions: Urinary Tract Infection, Adult Prescriptions: cephALEXin [Keflex] 500 mg PO TID 7 Days #21 cap Referrals: PRIMARY CARE, [Primary Care Provider] - 3-5 Days
[2020-05-07 14:14] LABS: Basophils % (Auto) 0.7 % (0.0-1.8); Eosinophils # (Auto) 0.1 K/mm3 (0.0-0.4); Eosinophils % (Auto) 2.3 % (0.0-4.3); Hematocrit 39.8 % (30.3-42.9); Lymphocytes # (Auto) 1.4 K/mm3 (1.2-5.4); Lymphocytes % (Auto) 23.6 % (13.4-35.0); Mean Corpuscular HGB Conc 33 % (30-34); Mean Corpuscular Volume 88 fl (79-97); Monocytes # (Auto) 0.7 K/mm3 (0.0-0.8); Monocytes % (Auto) 11.5 % (0.0-7.3); Red Blood Count 4.55 M/mm3 (3.65-5.03); Red Cell Distribution Width 14.7 % (13.2-15.2)
[2020-05-07 14:34] LABS: Platelet Count 129 K/mm3 (140-440)
[2020-05-07 14:55] LABS: Blood Urea Nitrogen 8 mg/dL (7-17); Calcium 10.9 mg/dL (8.4-10.2); Hemolysis Index 137
--- NOTE | 2020-05-07 14:55 | Cat Scan Report ---
CT BRAIN: 05/07/2020 INDICATION / CLINICAL INFORMATION: elderly, head trauma, fall, facial hematoma,. COMPARISON: 12/10/2019 FINDINGS: BRAIN/INTRACRANIAL STRUCTURES: Unenhanced CT images of the brain demonstrate no evidence of acute int racranial abnormality. Ventricles and sulci are prominent in size, consistent with age-related atrophic change. Extensive chronic white matter hypoattenuation is present in the cerebral hemispheric white matter. There is no evidence of acute ischemic injury, hemorrhage, or mass. There are no abnormal extra-axial fluid collections. EXTRACRANIAL STRUCTURES: Left periorbital soft tissue swelling is present. Note is made of opacificat ion of right ethmoid air cells, unchanged. IMPRESSION: No acute abnormality. Chronic and age-related changes, stable when compared to 12/10/2019. All CT scans at this location are performed using dose reduction to ALARA by means of automated expos ure control. Signer Name: Dinesh Pena MD Signed: 05/07/2020 2:51 PM Workstation Name: [id number]
[2020-05-07 15:24] LABS: BUN/Creatinine Ratio 13
[2020-05-07 15:35] LABS: Amorphous Crystals,Urine Few; Bacteria,Urine 2+ /HPF (Negative); Bilirubin,Urine NEG (Negative); Blood,Urine MOD (Negative); Color,Urine Yellow (Yellow); Protein,Urine <15 mg/dL mg/dL (Negative); Urobilinogen,Urine < 2.0 mg/dL (<2.0)
[2020-05-07] MEDS ORDERED: cephALEXin 500 MG CAP PO ONE (15:48)
[2020-05-07 17:49] VITALS: BP 131/65
== END 2020-05-07 18:15 | disposition home or self-care (01) ==
LOC: ED 12:32
DX: S09.90XA Unspecified injury of head, initial encounter (principal); N39.0 Urinary tract infection, site not specified; R53.1 Weakness; M19.91 Primary osteoarthritis, unspecified site; F03.90 Unspecified dementia, unspecified severity, without behavioral disturbance, psychotic disturbance, mood disturbance, and anxiety; Z98.890 Other specified postprocedural states; Z79.899 Other long term (current) drug therapy; Z88.8 Allergy status to other drugs, medicaments and biological substances; W18.11XA Fall from or off toilet without subsequent striking against object, initial encounter; Y93.89 Activity, other specified; Y92.89 Other specified places as the place of occurrence of the external cause; Y99.8 Other external cause status
CPT/HCPCS: 36415; 70450; 80048; 81001; 85025; 87076; 87086; 87186

== ENCOUNTER 2020-06-22 13:11 | Emergency (ER) | payer MEDICAID ==
[2020-06-22] MEDS ORDERED: SODIUM CHLORIDE 0.9% 1000 ML 1,000 ML IV ONE (13:42)
--- NOTE | 2020-06-22 13:53 | Emergency Department Report ---
ED Altered Mental Status HPI - General Chief Complaint: Altered Mental Status Stated Complaint: AMS Time Seen by Provider: 06/22/20 13:40 Source: EMS Mode of arrival: Stretcher Limitations: No Limitations - History of Present Illness Initial Comments: 89-year-old female, history of atrial fibrillation, sick sinus syndrome s/p pacemaker placement, vertigo, vascular dementia, orthostatic hypotension, presents to ED for altered mental status. Per EMS, home health nurse was braiding patient care when she became unresponsive, diaphoretic, and lost her c olor. Nurse reports patient had faint pulse present. Upon EMS arrival, patient was arousable. Systolic BP in the 80s. Accu-Chek was normal. Patient only complains of some dizziness at this time. She denies any headache, chest pain, abdominal pain, fever, vomiting, diarrhea, cough, shortness of breath. MD Complaint: altered mental status -: This afternoon Severity: moderate Context: unknown Associated Symptoms: diaphoresis, syncope. denies: chest pain, cough, fever /chills, headaches, nausea/vomiting, shortness of breath, diarrhea - Related Data Previous Rx's Medication Instructions Recorded Last Taken Type Meclizine [Antivert] 25 mg PO BID PRN #60 tablet 04/27/18 Unknown Rx Aspirin [Aspirin BABY CHEW TAB] 81 mg PO QDAY #30 tab.chew 12/13/19 Unknown Rx Furosemide [Lasix TAB] 40 mg PO QDAY #30 12/13/19 Unknown Rx Metoprolol [Lopressor TAB] 25 mg PO BID #60 12/13/19 Unknown Rx Potassium Chloride [K-Dur] 20 meq PO QDAY #30 12/13/19 Unknown Rx Valsartan [Diovan] 160 mg PO DAILY #30 tablet 12/13/19 Unknown Rx donepeziL [Aricept] 10 mg PO HS #30 tablet 12/13/19 Unknown Rx cephALEXin [Keflex] 500 mg PO TID 7 Days #21 cap 05/07/20 Unknown Rx Nitrofurantoin [place]/M-Cryst 100 mg PO Q12HR 7 Days #14 capsule 06/22/20 Unknown Rx [Macrobid CAP] Allergies Allergy/AdvReac Type Severity Reaction Status Date / Time ibuprofen Allergy Intermediate Itching Verified 06/22/19 18:17 ED Review of Systems ROS: Stated complaint: AMS Other details as noted in HPI Comment: All other systems reviewed and negative Constitutional: denies: fever Respiratory: denies: cough, shortness of breath Cardiovascular: denies: chest pain Gastrointestinal: denies: abdominal pain, vomiting, diarrhea Neurological: other (Reports dizziness). denies: headache ED Past Medical Hx - Past Medical History Hx Congestive Heart Failure: No Hx Diabetes: No Hx Arthritis: Yes Hx Asthma: No Hx COPD: No Hx Dementia: Yes Additional medical history: angina. Tachybradycardia syndrome. Vertigo. Pacemaker. 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 pacemaker - Social History Smoking Status: Unknown if ever smoked - Medications Home Medications: Home Medications Medication Instructions Recorded Confirmed Last Taken Type Meclizine [Antivert] 25 mg PO BID PRN #60 tablet 04/27/18 12/13/19 Unknown Rx Aspirin [Aspirin BABY CHEW TAB] 81 mg PO QDAY #30 tab.chew 12/13/19 Unknown Rx Furosemide [Lasix TAB] 40 mg PO QDAY #30 12/13/19 Unknown Rx Metoprolol [Lopressor TAB] 25 mg PO BID #60 12/13/19 Unknown Rx Potassium Chloride [K-Dur] 20 meq PO QDAY #30 12/13/19 Unknown Rx Valsartan [Diovan] 160 mg PO DAILY #30 tablet 12/13/19 Unknown Rx donepeziL [Aricept] 10 mg PO HS #30 tablet 12/13/19 Unknown Rx cephALEXin [Keflex] 500 mg PO TID 7 Days #21 cap 05/07/20 Unknown Rx Nitrofurantoin [place]/M-Cryst 100 mg PO Q12HR 7 Days #14 capsule 06/22/20 Unknown Rx [Macrobid CAP] ED Physical Exam - General Limitations: No Limitations General appearance: alert, in no apparent distress - Head Head exam: Present: atraumatic, normocephalic - Eye Eye exam: Present: normal appearance - ENT ENT exam: Present: mucous membranes moist - Neck Neck exam: Present: normal inspection - Respiratory Respiratory exam: Present: normal lung sounds bilaterally. Absent: respiratory distress - Cardiovascular Cardiovascular Exam: Present: regular rate, normal rhythm - GI/Abdominal GI/Abdominal exam: Present: soft. Absent: distended, tenderness - Extremities Exam Extremities exam: Present: normal inspection - Neurological Exam Neurological exam: Present: alert, CN II-XII intact, other (mildly lethargic, but arousable; BUE strength 5/5; BLE strength 4/5; sensation intact throughout). Absent: oriented X3 (Oriented to self and place) - Psychiatric Psychiatric exam: Present: normal affect, normal mood - Skin Skin exam: Present: warm, dry, intact, normal color ED Course Vital Signs 06/22/20 06/22/20 06/22/20 12:30 13:27 14:00 Temperature 97.5 F L Pulse Rate 74 Respiratory 18 25 H Rate Blood Pressure 140/68 Blood Pressure 122/65 [Right] O2 Sat by Pulse 99 95 93 Oximetry 06/22/20 06/22/20 06/22/20 14:30 14:46 15:00 Temperature Pulse Rate 60 60 60 Respiratory 13 15 24 Rate Blood Pressure 122/59 140/68 130/56 Blood Pressure [Right] O2 Sat by Pulse Oximetry 06/22/20 06/22/20 06/22/20 15:16 15:37 16:00 Temperature Pulse Rate 60 60 60 Respiratory 12 13 11 L Rate Blood Pressure 130/56 137/55 Blood Pressure 137/55 [Right] O2 Sat by Pulse 97 100 Oximetry 06/22/20 06/22/20 06/22/20 16:16 16:30 17:16 Temperature Pulse Rate 60 60 60 Respiratory 14 13 13 Rate Blood Pressure 142/55 146/69 152/76 Blood Pressure [Right] O2 Sat by Pulse 98 94 Oximetry 06/22/20 06/22/20 17:46 18:16 Temperature Pulse Rate 60 60 Respiratory 14 12 Rate Blood Pressure 156/62 157/71 Blood Pressure [Right] O2 Sat by Pulse 98 99 Oximetry - Reevaluation(s) Reevaluation #1: 06/22/20 16:30 Patient is much more awake and alert. Patient is singing in her room. She has no neuro deficits. Blood pressure has been stable. - Lab Data Result diagrams: 06/22/20 13:49 06/22/20 13:49 Lab Results 06/22/20 06/22/20 06/22/20 Range/Units 13:49 13:49 13:49 WBC 5.3 (4.5-11.0) K/mm3 RBC 4.22 (3.65-5.03) M/mm3 Hgb 12.2 (10.1-14.3) gm/dl Hct 37.2 (30.3-42.9) % MCV 88 (79-97) fl MCH 29 (28-32) pg MCHC 33 (30-34) % RDW 14.8 (13.2-15.2) % Plt Count 229 (140-440) K/mm3 Lymph % (Auto) 42.5 H (13.4-35.0) % [place] % (Auto) 6.8 (0.0-7.3) % Eos % (Auto) 2.6 (0.0-4.3) % Baso % (Auto) 0.5 (0.0-1.8) % Lymph # (Auto) 2.3 (1.2-5.4) K/mm3 [place] # (Auto) 0.4 (0.0-0.8) K/mm3 Eos # (Auto) 0.1 (0.0-0.4) K/mm3 Baso # (Auto) 0.0 (0.0-0.1) K/mm3 Seg Neutrophils % 47.6 (40.0-70.0) % Seg Neutrophils # 2.5 (1.8-7.7) K/mm3 PT 13.9 (12.2-14.9) Sec. INR 1.09 (0.87-1.13) APTT 25.5 (24.2-36.6) Sec. Sodium (137-145) mmol/L Potassium (3.6-5.0) mmol/L Chloride (98-107) mmol/L Carbon Dioxide (22-30) mmol/L Anion Gap mmol/L BUN (7-17) mg/dL Creatinine (0.6-1.2) mg/dL Estimated GFR ml/min BUN/Creatinine Ratio % Glucose (65-100) mg/dL Calcium (8.4-10.2) mg/dL Total Bilirubin (0.1-1.2) mg/dL Direct Bilirubin (0-0.2) mg/dL Indirect Bilirubin mg/dL AST (5-40) units/L ALT (7-56) units/L Alkaline Phosphatase (35-129) units/L Troponin T < 0.010 (0.00-0.029) ng/mL Total Protein (6.3-8.2) g/dL Albumin (3.9-5) g/dL Albumin/Globulin Ratio % Urine Color (Yellow) Urine Turbidity (Clear) Urine pH (5.0-7.0) Ur Specific [place] (1.003-1.030) Urine Protein (Negative) mg/dL Urine Glucose (UA) (Negative) mg/dL Urine Ketones (Negative) mg/dL Urine Blood (Negative) Urine Nitrite (Negative) Urine Bilirubin (Negative) Urine Urobilinogen (<2.0) mg/dL Ur Leukocyte Esterase (Negative) Urine WBC (Auto) (0.0-6.0) /HPF Urine RBC (Auto) (0.0-6.0) /HPF Urine WBC Clumps /HPF Hyaline Casts /LPF Urine Mucus /HPF 06/22/20 06/22/20 Range/Units 13:49 Unknown WBC (4.5-11.0) K/mm3 RBC (3.65-5.03) M/mm3 Hgb (10.1-14.3) gm/dl Hct (30.3-42.9) % MCV (79-97) fl MCH (28-32) pg MCHC (30-34) % RDW (13.2-15.2) % Plt Count (140-440) K/mm3 Lymph % (Auto) (13.4-35.0) % [place] % (Auto) (0.0-7.3) % Eos % (Auto) (0.0-4.3) % Baso % (Auto) (0.0-1.8) % Lymph # (Auto) (1.2-5.4) K/mm3 [place] # (Auto) (0.0-0.8) K/mm3 Eos # (Auto) (0.0-0.4) K/mm3 Baso # (Auto) (0.0-0.1) K/mm3 Seg Neutrophils % (40.0-70.0) % Seg Neutrophils # (1.8-7.7) K/mm3 PT (12.2-14.9) Sec. INR (0.87-1.13) APTT (24.2-36.6) Sec. Sodium 139 (137-145) mmol/L Potassium 4.2 (3.6-5.0) mmol/L Chloride 103.4 (98-107) mmol/L Carbon Dioxide 28 (22-30) mmol/L Anion Gap 12 mmol/L BUN 8 (7-17) mg/dL Creatinine 0.8 (0.6-1.2) mg/dL Estimated GFR > 60 ml/min BUN/Creatinine Ratio 10 % Glucose 151 H (65-100) mg/dL Calcium 10.7 H (8.4-10.2) mg/dL Total Bilirubin 0.50 (0.1-1.2) mg/dL Direct Bilirubin < 0.2 (0-0.2) mg/dL Indirect Bilirubin 0.3 mg/dL AST 13 (5-40) units/L ALT 8 (7-56) units/L Alkaline Phosphatase 120 (35-129) units/L Troponin T < 0.010 (0.00-0.029) ng/mL Total Protein 6.6 (6.3-8.2) g/dL Albumin 3.6 L (3.9-5) g/dL Albumin/Globulin Ratio 1.2 % Urine Color [place] (Yellow) Urine Turbidity Cloudy (Clear) Urine pH 5.0 (5.0-7.0) Ur Specific [place] 1.017 (1.003-1.030) Urine Protein 100 mg/dl (Negative) mg/dL Urine Glucose (UA) Neg (Negative) mg/dL Urine Ketones Neg (Negative) mg/dL Urine Blood Mod (Negative) Urine Nitrite Pos (Negative) Urine Bilirubin Neg (Negative) Urine Urobilinogen < 2.0 (<2.0) mg/dL Ur Leukocyte Esterase Lg (Negative) Urine WBC (Auto) > 182.0 H (0.0-6.0) /HPF Urine RBC (Auto) 18.0 (0.0-6.0) /HPF Urine WBC Clumps 3+ /HPF Hyaline Casts 4 /LPF Urine Mucus Few /HPF - EKG Data -: EKG Interpreted by Or EKG shows normal: ST-T waves Rate: normal Interpretation: no acute changes, other (AV dual paced rhythm) - Radiology Data Radiology results: report reviewed, image reviewed - Medical Decision Making 89-year-old female presents to ED following syncopal episode at home. EMS reports patient was initially hypotensive with systolic BP in the 80s. Upon ED arrival, blood pressure had normalized. Vital signs have been stable during her ED stay. When she initially presented she was somewhat lethargic, however patient has become much more alert. Patient has no focal neuro deficits. CT head is negative for any acute findings. EKG shows paced rhythm. Chest x-ray is normal. Labs are unremarkable except for UA which shows evidence of UTI. Patient given Rocephin 1 g IV along with 1 L bolus of normal saline. Patient does have history of orthostatic hypotension, this is likely the cause of her syncopal episode today. Patient responded well to IV fluid administration. Patient is stable for discharge home. Will discharge with prescription for antibiotics. - Differential Diagnosis Arrhythmia, orthostatic hypotension, CVA Critical care attestation.: If time is entered above; I have spent that time in minutes in the direct care of this critically ill patient, excluding procedure time. ED Disposition Clinical Impression: Syncope, UTI (lower urinary tract infection) Disposition: DC- TO HOME OR SELFCARE Is pt being admited?: No Condition: Stable Instructions: Urinary Tract Infection, Adult, [id number], Syncope, [id number], Syncope (ED) Prescriptions: Nitrofurantoin [place]/M-Cryst [Macrobid CAP] 100 mg PO Q12HR 7 Days #14 capsule Referrals: PRIMARY CARE, [Primary Care Provider] - 3-5 Days Time of Disposition: 16:30
[2020-06-22 14:12] LABS: Basophils % (Auto) 0.5 % (0.0-1.8); Eosinophils # (Auto) 0.1 K/mm3 (0.0-0.4); Eosinophils % (Auto) 2.6 % (0.0-4.3); Hematocrit 37.2 % (30.3-42.9); Hemoglobin 12.2 gm/dl (10.1-14.3); Lymphocytes # (Auto) 2.3 K/mm3 (1.2-5.4); Lymphocytes % (Auto) 42.5 % (13.4-35.0); Mean Corpuscular HGB Conc 33 % (30-34); Mean Corpuscular Volume 88 fl (79-97); Monocytes # (Auto) 0.4 K/mm3 (0.0-0.8); Monocytes % (Auto) 6.8 % (0.0-7.3); Platelet Count 229 K/mm3 (140-440); Red Blood Count 4.22 M/mm3 (3.65-5.03); Red Cell Distribution Width 14.8 % (13.2-15.2)
[2020-06-22 14:17] LABS: Bilirubin,Urine NEG (Negative); Blood,Urine MOD (Negative); Color,Urine Amber (Yellow); Hyaline Casts,Urine 4 /LPF; Mucus,Urine FEW /HPF; Urobilinogen,Urine < 2.0 mg/dL (<2.0)
[2020-06-22 14:18] LABS: WBC,Urine > 182.0 /HPF (0.0-6.0)
[2020-06-22 14:19] LABS: INR 1.09 (0.87-1.13); Partial Thromboplastin Time 25.5 Sec. (24.2-36.6)
[2020-06-22 14:32] LABS: Alanine Aminotransferase 8 units/L (7-56); Albumin 3.6 g/dL (3.9-5); BUN/Creatinine Ratio 10; Blood Urea Nitrogen 8 mg/dL (7-17); Calcium 10.7 mg/dL (8.4-10.2); Hemolysis Index 0
[2020-06-22 14:41] LABS: Bilirubin,Direct < 0.2 mg/dL (0-0.2)
--- NOTE | 2020-06-22 15:11 | XRay Report ---
CHEST 1 VIEW INDICATION: syncope. COMPARISON: 12/10/2019 FINDINGS: SUPPORT DEVICES: Stable satisfactory device positioning. HEART: Within normal limits. LUNGS/PLEURA: No acute air space or interstitial disease. ADDITIONAL FINDINGS: None. IMPRESSION: 1. No acute findings. Signer Name: Michael Hunt MD Signed: 06/22/2020 3:06 PM Workstation Name: [id number]
[2020-06-22] MEDS ORDERED: cefTRIAXone/NS 1 GM/50 ML 1 GM/50 ML BAG IV ONE (15:15)
--- NOTE | 2020-06-22 15:27 | Cat Scan Report ---
CT HEAD WITHOUT CONTRAST INDICATION / CLINICAL INFORMATION: syncope. TECHNIQUE: All CT scans at this location are performed using CT dose reduction for ALARA by means of automated exposure control. COMPARISON: CT dated 05/07/20 FINDINGS: HEMORRHAGE: None. EXTRA-AXIAL SPACES: Normal in size and morphology for the patient's age. VENTRICULAR SYSTEM: Mildly prominent likely related to central atrophy. No change. CEREBRAL PARENCHYMA: Moderate white matter hypodensities likely related to microangiopathy, unchanged . No acute territorial infarct. MIDLINE SHIFT / HERNIATION: None. CEREBELLUM / BRAINSTEM: No significant abnormality. ORBITS: Normal as visualized. SOFT TISSUES: No significant abnormality. SKULL: No significant abnormality. PARANASAL SINUSES / MASTOID AIR CELLS: Right frontal sinus opacification appears chronic and unchange d. ADDITIONAL FINDINGS: None. IMPRESSION: 1. No acute intracranial abnormality. 2. Chronic and age-related findings. No significant change. Signer Name: Susy Roque MD Signed: 06/22/2020 3:22 PM Workstation Name: [id number]
[2020-06-22 18:19] VITALS: BP 157/71
--- NOTE | 2020-06-24 10:43 | Electrocardiograph Report ---
[facility] Test Date: 2020-06-22 Test Time: 13:38:39 Pat Name: HANNAH PHILIPPE Department: Room: Gender: F Admission Discharge Rn: [id number] : [id number] Requested By: IRIS EARLY Order Number: [id number] Reading MD: Karine Storm Measurements Intervals [place] Rate: 60 P: 257 WI: 241 QRS: -52 QRSD: 151 T: 80 QT: 468 QTc: 468 Interpretive Statements Atrial-ventricular dual-paced rhythm No previous ECG available for comparison Electronically Signed On 06-24-2020 10:43:06 EDT by Karine Storm
== END 2020-06-22 18:30 | disposition home or self-care (01) ==
LOC: ED 13:11
DX: N39.0 Urinary tract infection, site not specified (principal); R55 Syncope and collapse; M19.90 Unspecified osteoarthritis, unspecified site; F03.90 Unspecified dementia, unspecified severity, without behavioral disturbance, psychotic disturbance, mood disturbance, and anxiety; Z98.890 Other specified postprocedural states; Z79.899 Other long term (current) drug therapy; Z88.6 Allergy status to analgesic agent
CPT/HCPCS: 36415; 70450; 71045; 80048; 80076; 81001; 84484; 85025; 85610; 85730; 93005; 96361; 96365; 96366; 99285; J0696; J7030

== ENCOUNTER 2020-11-22 07:22 | Emergency (ER) | payer MEDICAID ==
[2020-11-22 07:42] VITALS: BP 155/76
--- NOTE | 2020-11-22 07:48 | Emergency Department Report ---
ED General Adult HPI - General Chief complaint: Extremity Injury, Lower Stated complaint: RT LEG PAIN Time Seen by Provider: 11/22/20 07:36 Source: EMS Mode of arrival: Stretcher Limitations: Other - History of Present Illness Initial comments: Patient is 89 years old female, bedbound, history of dementia and pacemaker. Patient brought to the emergency room via EMS from home for evaluation of right lower extremity swelling for the last 3 days. EMS stated that patient family noticed the swelling but denied any shortness of breath, fever or chills. Patient is alert but not oriented. Patient is not communicating well however she denied any chest pain or shortness of breath. Severity scale (0 -10): 6 - Related Data Previous Rx's Medication Instructions Recorded Last Taken Type Meclizine [Antivert] 25 mg PO BID PRN #60 tablet 04/27/18 Unknown Rx Aspirin [Aspirin BABY CHEW TAB] 81 mg PO QDAY #30 tab.chew 12/13/19 Unknown Rx Furosemide [Lasix TAB] 40 mg PO QDAY #30 12/13/19 Unknown Rx Metoprolol [Lopressor TAB] 25 mg PO BID #60 12/13/19 Unknown Rx Potassium Chloride [K-Dur] 20 meq PO QDAY #30 12/13/19 Unknown Rx Valsartan [Diovan] 160 mg PO DAILY #30 tablet 12/13/19 Unknown Rx donepeziL [Aricept] 10 mg PO HS #30 tablet 12/13/19 Unknown Rx cephALEXin [Keflex] 500 mg PO TID 7 Days #21 cap 05/07/20 Unknown Rx Nitrofurantoin [place]/M-Cryst 100 mg PO Q12HR 7 Days #14 capsule 06/22/20 Unknown Rx [Macrobid CAP] Allergies Allergy/AdvReac Type Severity Reaction Status Date / Time ibuprofen Allergy Intermediate Itching Verified 06/22/19 18:17 ED Review of Systems ROS: Stated complaint: RT LEG PAIN Other details as noted in HPI Comment: All other systems reviewed and negative Constitutional: denies: chills, fever Respiratory: denies: cough, orthopnea, shortness of breath, SOB with exertion, S OB at rest Cardiovascular: denies: chest pain, palpitations Gastrointestinal: denies: abdominal pain, nausea, vomiting, diarrhea, constipation, hematemesis Musculoskeletal: denies: back pain Neurological: denies: headache, weakness, numbness, paresthesias, confusion ED Past Medical Hx - Past Medical History Hx Congestive Heart Failure: No Hx Diabetes: No Hx Arthritis: Yes Hx Asthma: No Hx COPD: No Hx Dementia: Yes Additional medical history: angina. Tachybradycardia syndrome. Vertigo. Pacemaker. 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 pacemaker - Social History Smoking Status: Unknown if ever smoked - Medications Home Medications: Home Medications Medication Instructions Recorded Confirmed Last Taken Type Meclizine [Antivert] 25 mg PO BID PRN #60 tablet 04/27/18 12/13/19 Unknown Rx Aspirin [Aspirin BABY CHEW TAB] 81 mg PO QDAY #30 tab.chew 12/13/19 Unknown Rx Furosemide [Lasix TAB] 40 mg PO QDAY #30 12/13/19 Unknown Rx Metoprolol [Lopressor TAB] 25 mg PO BID #60 12/13/19 Unknown Rx Potassium Chloride [K-Dur] 20 meq PO QDAY #30 12/13/19 Unknown Rx Valsartan [Diovan] 160 mg PO DAILY #30 tablet 12/13/19 Unknown Rx donepeziL [Aricept] 10 mg PO HS #30 tablet 12/13/19 Unknown Rx cephALEXin [Keflex] 500 mg PO TID 7 Days #21 cap 05/07/20 Unknown Rx Nitrofurantoin [place]/M-Cryst 100 mg PO Q12HR 7 Days #14 capsule 06/22/20 Unknown Rx [Macrobid CAP] ED Physical Exam - General Limitations: Other General appearance: alert, in no apparent distress - Head Head exam: Present: atraumatic, normocephalic, normal inspection - Eye Eye exam: Present: normal appearance, PERRL - ENT ENT exam: Present: normal exam, normal orophraynx, mucous membranes moist - Neck Neck exam: Present: normal inspection, full ROM. Absent: tenderness, men ingismus - Respiratory Respiratory exam: Present: normal lung sounds bilaterally - Cardiovascular Cardiovascular Exam: Present: regular rate, normal rhythm, normal heart sounds - GI/Abdominal GI/Abdominal exam: Present: soft, normal bowel sounds. Absent: distended, tenderness, guarding, rebound, rigid, organomegaly, mass, bruit, pulsatile mass, hernia - Extremities Exam Extremities exam: Present: full ROM, normal capillary refill, pedal edema. Absent: tenderness, calf tenderness - Back Exam Back exam: Present: normal inspection, full ROM. Absent: CVA tenderness (R) - Neurological Exam Neurological exam: Present: alert, CN II-XII intact. Absent: motor sensory deficit - Psychiatric Psychiatric exam: Present: flat affect - Skin Skin exam: Present: warm, dry ED Course Vital Signs 11/22/20 07:37 Temperature 97.4 F L Pulse Rate 80 Respiratory 18 Rate Blood Pressure 155/76 [Left] O2 Sat by Pulse 98 Oximetry ED Medical Decision Making - Lab Data Result diagrams: 11/22/20 08:05 11/22/20 08:05 - Radiology Data Radiology results: report reviewed - Medical Decision Making Patient is 89 years old female, bedbound, history of dementia and pacemaker. Patient brought to the emergency room via EMS from home for evaluation of right lower extremity swelling for the last 3 days. EMS stated that patient family noticed the swelling but denied any shortness of breath, fever or chills. Patient is alert but not oriented. Patient is not communicating well however she denied any chest pain or shortness of breath. Patient remained stable in the ER with a stable vital sign. Labs reviewed and is unremarkable. Bilateral lower extremity Doppler ultrasound showed no evidence of DVT. Patient symptoms most likely related to peripheral edema however instruction was made for the patient to follow-up with her primary care physician to repeat the ultrasound in few days to make sure that there is no developing DVT. Family also instructed to bring the patient back if she develop any new symptoms including chest pain or shortness of breath. Critical care attestation.: If time is entered above; I have spent that time in minutes in the direct care of this critically ill patient, excluding procedure time. ED Disposition Clinical Impression: Leg swelling, Peripheral edema Disposition: HOME / SELF CARE / HOMELESS Is pt being admited?: No Condition: Stable Instructions: Peripheral Edema Additional Instructions: Please add a 20 mg of Lasix in the evening to her current regimen of 40 mg in the morning and follow-up with daytime caregiver in the next 2 to 3 days. Referrals: PRIMARY CARE, [Primary Care Provider] - 3-5 Days
[2020-11-22 08:57] LABS: Basophils # (Auto) 0.1 K/mm3 (0.0-0.1); Basophils % (Auto) 0.9 % (0.0-1.8); Eosinophils # (Auto) 0.2 K/mm3 (0.0-0.4); Eosinophils % (Auto) 3.2 % (0.0-4.3); Hematocrit 38.4 % (30.3-42.9); Hemoglobin 12.5 gm/dl (10.1-14.3); Lymphocytes # (Auto) 2.4 K/mm3 (1.2-5.4); Mean Corpuscular HGB Conc 33 % (30-34); Mean Corpuscular Volume 88 fl (79-97); Monocytes # (Auto) 0.4 K/mm3 (0.0-0.8); Monocytes % (Auto) 7.9 % (0.0-7.3); Platelet Count 232 K/mm3 (140-440); Red Blood Count 4.37 M/mm3 (3.65-5.03); Red Cell Distribution Width 14.6 % (13.2-15.2)
--- NOTE | 2020-11-22 09:07 | Vascular Lab Report ---
DUPLEX DOPPLER LOWER EXTREMITY VEINS, BILATERAL INDICATION / CLINICAL INFORMATION: Bilateral lower extremity swelling. TECHNIQUE: Duplex doppler imaging was performed through the veins of both lower extremities using venous vic irma and other maneuvers. COMPARISON: None available. FINDINGS: RIGHT COMMON FEMORAL VEIN: Negative. RIGHT FEMORAL VEIN: Negative. RIGHT POPLITEAL VEIN: Negative. RIGHT CALF VEINS: Negative. LEFT COMMON FEMORAL VEIN: Negative. LEFT FEMORAL VEIN: Negative. LEFT POPLITEAL VEIN: Negative. LEFT CALF VEINS: Negative. ADDITIONAL FINDINGS: None. IMPRESSION: 1. No sonographic evidence for DVT in either lower extremity. Signer Name: Pepe Shah MD Signed: 11/22/2020 9:03 AM Workstation Name: [id number]
[2020-11-22 09:20] LABS: Alanine Aminotransferase 8 units/L (7-56); Albumin 3.7 g/dL (3.9-5)
[2020-11-22 09:22] LABS: Blood Urea Nitrogen 9 mg/dL (7-17); Calcium 10.7 mg/dL (8.4-10.2); Hemolysis Index 6
[2020-11-22 09:31] LABS: INR 1.02 (0.87-1.13); Partial Thromboplastin Time 28.9 Sec. (24.2-36.6)
[2020-11-22 09:52] LABS: BUN/Creatinine Ratio 18; Bilirubin,Direct < 0.2 mg/dL (0-0.2)
== END 2020-11-22 13:14 | disposition home or self-care (01) ==
LOC: ED 07:22
DX: M79.89 Other specified soft tissue disorders (principal); R60.0 Localized edema; M19.90 Unspecified osteoarthritis, unspecified site; F03.90 Unspecified dementia, unspecified severity, without behavioral disturbance, psychotic disturbance, mood disturbance, and anxiety; I49.5 Sick sinus syndrome; Z98.890 Other specified postprocedural states; Z88.6 Allergy status to analgesic agent
CPT/HCPCS: 36415; 80048; 80076; 83880; 85025; 85610; 85730; 93970; 99284